=== PATIENT | male | born 1940 | race Caucasian/White ===

== ENCOUNTER → 2018-02-01 | Outpatient (CLI) | payer MEDICARE, BC ==
--- NOTE | 2018-02-01 16:33 | Diagnostic Imaging Report ---
EXAMINATION: Right foot radiographs, three views. COMPARISON: None. HISTORY: 77-year-old male, pain near the base of the fourth and fifth toes. FINDINGS: There is wloicgnl-gn-ezvwvd joint space loss at the first metatarsophalangeal joint. There is a chronic appearing deformity of the distal fibular diaphysis likely relating to sequela of remote prior healed fracture. There is an os peroneum. There is no identified acute fracture. There is no large tibiotalar joint effusion. The lateral radiograph is obliquely positioned. The additional joint spaces appear fairly well preserved. IMPRESSION: 1. Os peroneum. 2. 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 3. Sequelae of remote prior healed distal fibular diaphyseal fracture. Dictated by: Dictated on workstation # [id number]
== END ==
LOC: RAD 15:48
PROVIDERS: ATTEND Nurse Practitioner Family
DX: M19.071 Primary osteoarthritis, right ankle and foot (principal); S82.831S Other fracture of upper and lower end of right fibula, sequela
CPT/HCPCS: 73630

== ENCOUNTER 2019-07-11 08:24 | Outpatient (CLI) | payer MEDICARE, BC ==
[~2019-07-11] VITALS: Ht 165.1 cm; Wt 70.4 kg
[2019-07-11] MEDS ORDERED: FA/M1TAB29 PO (09:12)
[2019-07-11] MEDS ORDERED: DILT120C53 PO (09:12)
[2019-07-11] MEDS ORDERED: UBID100C17 PO (09:12)
[2019-07-11] MEDS ORDERED: CETI10TA20 PO (09:12)
[2019-07-11] MEDS ORDERED: ROSU5TAB PO (09:12)
[2019-07-11] MEDS ORDERED: ALPR0.5T PO (09:12)
[2019-07-11] MEDS ORDERED: TRIM100T PO (09:12)
[2019-07-11] MEDS ORDERED: CLOP75TA28 PO (09:12)
[2019-07-11] MEDS ORDERED: CYAN1TAB16 PO (09:12)
[2019-07-11] MEDS ORDERED: TRIA1CAP4 PO (09:12)
[2019-07-11] MEDS ORDERED: ISOS30TA3 PO (09:12)
[2019-07-11] MEDS ORDERED: ASCO10006 PO (09:12)
[2019-07-11] MEDS ORDERED: ASPI-586 PO (09:12)
[2019-07-11] MEDS ORDERED: MV-M1TAB20 PO (09:12)
== END 2019-07-11 09:13 | disposition home or self-care (01) ==
LOC: PREOP 08:24
PROVIDERS: ATTEND Surgery
DX: Z01.818 Encounter for other preprocedural examination (principal)

== ENCOUNTER 2019-07-13 11:09 | Day surgery (SDC) | payer MEDICARE, BC ==
[2019-07-13] VITALS (15 sets, daily range): BP systolic 104–181; BP diastolic 61–99
[~2019-07-13 11:09] MED LIST: ALPR0.5T PO; ASCO10006 PO; ASPI-586 PO; CETI10TA20 PO; CLOP75TA28 PO; CYAN1TAB16 PO; DILT120C53 PO; FA/M1TAB29 PO; ISOS30TA3 PO; MV-M1TAB20 PO; ROSU5TAB PO; TRIA1CAP4 PO; TRIM100T PO; UBID100C17 PO
[2019-07-13] MEDS ORDERED: NS IV 500 ML 500 ML ONE (11:30)
[2019-07-13] MEDS ORDERED: NS IV 500 ML 500 ML IV PRN (11:56)
[2019-07-13] MEDS ORDERED: LIDOCAINE JELLY 2% 6 ML SYRINGE MM PRN (12:00)
[2019-07-13] MEDS ORDERED: fentaNYL INJECTION 100 MCG/2 ML AMP IVP ONE (12:00)
[2019-07-13] MEDS ORDERED: MIDAZOLAM 2 MG/2 ML (VERSED) VIAL IVP ONE (12:00)
--- NOTE | 2019-07-13 12:16 | Conscious Sedation/ASA ---
Conscious Sedation Pre-Proced Time 12:00 ASA Score 2 For ASA 3 and 4: Consider anesthesia and medical clearance. Also, for patients with a history of failed moderate sedation consider anesthesia. Airway Lungs Heart ASA score ASA 1: a normal healthy patient ASA 2: a patient with a mild systemic disease (mid diabetes, controlled hypertension, obesity ASA 3: a patient with a severe systemic disease that limits activity (angina, COPD, prior Myocardial infarction) ASA 4: a patient with an incapacitating disease that is a constant threat to life (CHF, renal failure) ASA 5: a moribund patient not expected to survive 24 hrs. (ruptured aneurysm) ASA 6: a declared brain- patient whose organs are being harvested. For emergent operations, add the letter E after the classification Mallampati Classification Grade 2 Sedation Plan Analgesia, Amnesia, Plan communicated to team members, Discussed options with patient/fam, Discussed risks with patient/fam The patient is an appropriate candidate to undergo the planned procedure, sedation, and anesthesia. The patient immediately re-assessed prior to indication. YOSEF LILLY MD Jul 13, 2019 12:16
--- NOTE | 2019-07-13 12:16 | Progress Note-Pre Operative ---
Pre-Operative Progress Note H&P Reviewed The H&P was reviewed, patient examined and no changes noted. Date Seen by Provider: Jul 13, 2019 Time Seen by Provider: 12:00 Date H&P Reviewed: Jul 13, 2019 Time H&P Reviewed: 12:00 Pre-Operative Diagnosis: screening YOSEF Fuller MD Jul 13, 2019 12:16
[2019-07-13] MEDS ORDERED: LIDOCAINE JELLY 2% 6 ML SYRINGE ONE (12:17)
[2019-07-13] MEDS ORDERED: MIDAZOLAM 2 MG/2 ML (VERSED) VIAL ONE ×4 (12:17)
[2019-07-13] MEDS ORDERED: fentaNYL INJECTION 100 MCG/2 ML AMP ONE ×2 (12:17)
--- NOTE | 2019-07-13 12:18 | Discharge Inst-Surgical ---
D/C Lap Instructions-MAXX Follow Up Activity as tolerated High Fiber Diet 25g or more per day Avoid Alcohol, Caffeine, Spicy [place] and Acid foods. Drink 64 fluid oz or more of fluids per day. Symptoms to Report: Fever over 101 degree F, Nausea/Vomiting If any problems/questions: Contact your physician or go to Emergency Room YOSEF LILLY MD Jul 13, 2019 12:18
[2019-07-13] MEDS ORDERED: HYDROcodone/APAP 5 MG/325 MG (LORTAB) TAB PO PRN (12:30)
[2019-07-13] MEDS ORDERED: ACETAMINOPHEN 325 MG TABLET PO PRN (12:30)
[2019-07-13] MEDS ORDERED: ONDANSETRON 4 MG/2 ML (SDV) Z0FRAN IVP PRN (12:30)
[2019-07-13] MEDS ORDERED: morphine INJ 10 MG/ML 1ML (SYR OR VIAL) IVP PRN ×2 (12:30)
--- NOTE | 2019-07-13 13:46 | Progress Note-Post Operative ---
Post-Operative Progess Note Surgeon (s)/Arrt Technologist (s) Surgeon YOSEF LILLY MD Arrt Technologist: none Pre-Operative Diagnosis screening colo Post-Operative Diagnosis mild-mod chronic stage 2 ext and int hemorrhoids, mild sigmoid diverticulosis, small polyp asc colon(2mm). Procedure & Operative Findings Date of Procedure 07/13/19 Procedure Performed/Findings colonoscopy with bx. Anesthesia Type cs Estimated Blood Loss Estimated blood loss (mL): minimal Specimens/Packing Specimens Removed ascending colon polyp YOSEF LILLY MD Jul 13, 2019 13:46
--- NOTE | 2019-07-13 18:16 | OPERATIVE REPORT ---
DATE OF SERVICE: 07/13/2019 ATTENDING PRIMARY CARE PHYSICIAN: Dr. Young. PREOPERATIVE DIAGNOSIS: Screening colonoscopy. POSTOPERATIVE DIAGNOSES: Chronic stage II external and internal hemorrhoids, mild sigmoid diverticulosis, small polyp of the ascending colon, 2 mm in size. PROCEDURE: Colonoscopy with biopsy. SURGEON: Yosef Lilly MD ANESTHESIA: Conscious sedation. ESTIMATED BLOOD LOSS: Minimal. FINDINGS: Chronic stage II external and internal hemorrhoids, mild sigmoid diverticulosis, small polyp of the ascending colon, 2 mm in size. DISPOSITION: The patient tolerated the procedure well. INDICATIONS: The patient is a 78-year-old male in need of a screening colonoscopy. His last colonoscopy was 10 years ago and he does report that there was a polyp detected; however, biopsied and found to be benign. He states that he is otherwise doing well, does not report any major issues with diarrhea nor constipation as well as no red blood per rectum nor any dark tarry stools. He also does not report any family history of colon cancer. DESCRIPTION OF PROCEDURE: The patient was brought to the endoscopy suite, laid in the left lateral decubitus position. After adequate IV pain and sedative medications and conscious sedation anesthesia, a digital rectal examination was performed, which revealed chronic stage II external and internal hemorrhoids, not actively edematous nor inflamed and no bleeding. Normal sphincter tone was felt. Prostate gland was palpable and appeared normal. The endoscope was then intubated to the anus and rectum was gently insufflated. The endoscope was then advanced to the valves of Ag in the rectum with no polyps or any neoplasms identified. Through the sigmoid colon, a few isolated small diverticula identified consistent with early diverticulosis. The endoscope was then advanced to the remainder of the descending, transverse, ascending colon and the cecum. These segments were normal. There was a small polyp identified of the ascending colon, 2 mm in size, which was biopsied and destroyed using forceps and electrocautery with visualization of good hemostasis. The cecum appeared normal. The endoscope was then slowly withdrawn while taking a second look and suctioning of residual air with no additional findings. The patient tolerated the procedure well. We will recommend continued medical management with a high fiber diet with 30 grams of fiber per day as well as significant amounts of water to promote soft stools on a daily basis. He does not need another colonoscopy for another 10 years. Job ID: [id number] DocumentID: [id number] Dictated Date: 07/13/2019 13:05:50 Masonry Teacher Date: 07/13/2019 18:15:57 Dictated By: YOSEF LILLY MD
== END 2019-07-13 14:10 | disposition home or self-care (01) ==
LOC: ENDO 11:09
PROVIDERS: ATTEND Surgery
DX: Z12.11 Encounter for screening for malignant neoplasm of colon (principal); D12.2 Benign neoplasm of ascending colon; K64.2 Third degree hemorrhoids; K64.8 Other hemorrhoids; K57.30 Diverticulosis of large intestine without perforation or abscess without bleeding; I25.10 Atherosclerotic heart disease of native coronary artery without angina pectoris; I10 Essential (primary) hypertension; E78.5 Hyperlipidemia, unspecified; E78.00 Pure hypercholesterolemia, unspecified; F41.9 Anxiety disorder, unspecified; Z88.1 Allergy status to other antibiotic agents; Z90.79 Acquired absence of other genital organ(s); Z90.49 Acquired absence of other specified parts of digestive tract; Z79.02 Long term (current) use of antithrombotics/antiplatelets; Z79.82 Long term (current) use of aspirin; Z79.899 Other long term (current) drug therapy; Z87.891 Personal history of nicotine dependence; Z85.3 Personal history of malignant neoplasm of breast; Z82.49 Family history of ischemic heart disease and other diseases of the circulatory system

== ENCOUNTER → 2019-10-08 | Outpatient (CLI) | payer MEDICARE, BC ==
--- NOTE | 2019-10-08 15:02 | Diagnostic Imaging Report ---
PROCEDURE: US carotid duplex, bilateral. TECHNIQUE: Multiple real-time grayscale images were obtained over the carotid arteries in various projections, bilaterally. Additional spectral analysis and color Doppler duplex images were also obtained. INDICATION: Near syncope. FINDINGS: There is plaquing in both carotid bulbs. Velocities are normal bilaterally. No velocity elevation or stenosis is seen. Both vertebral arteries show antegrade flow. IMPRESSION: Bilateral carotid plaque. There is no evidence of a hemodynamically significant stenosis. Parameters based on the consensus panel Schmid-Scale and Doppler ultrasound criteria published August 2003, Radiology, Volume 229. DOPPLER (peak systolic velocity M/S Right Left CCA .97 1.14 ICA Proximal .92 .95 ICA Mid .47 .79 ICA Distal .48 .56 RATIO 0.9 0.8 ECA 1.27 .53 VERT .37 .47 Dictated by: Dictated on workstation # [id number]
== END ==
LOC: CARD 12:54
PROVIDERS: ATTEND Physician Assistant Medical
DX: I35.0 Nonrheumatic aortic (valve) stenosis (principal); I65.23 Occlusion and stenosis of bilateral carotid arteries; I10 Essential (primary) hypertension
CPT/HCPCS: 93306; 93880

== ENCOUNTER → 2020-04-22 | Outpatient (CLI) | payer MEDICARE, BC ==
[~2020-04-22] MED LIST changes: -CETI10TA20 PO; +CETI10TA21 PO
--- NOTE | 2020-04-22 12:00 | Diagnostic Imaging Report ---
PROCEDURE: CT abdomen and pelvis without contrast. TECHNIQUE: Multiple contiguous axial images were obtained through the abdomen and pelvis without the use of intravenous contrast. Auto Exposure Controls were utilized during the CT exam to meet ALARA standards for radiation dose reduction. INDICATION: New diagnosis of prostate cancer. Compared with study 07/29/2009. Cystic renal masses bilaterally greater left. It is once again noted the dominant lesion is exophytic off the upper pole on the left measuring 8.1 cm, previously 6.7 cm, mildly increased. Additional smaller cysts are either stable or slightly increased as well. Lesional evaluation limited by the absence of vascular contrast but no findings suggestive of a solid lesion are apparent. There is no stone or hydronephrosis. The adrenals and spleen are negative. The pancreas unremarkable. Gallbladder surgically absent. The liver and spleen negative. The adrenals are negative. The atherosclerotic aorta is nonaneurysmal. There multiple diverticuli associated with the urinary bladder, unchanged in appearance from the previous exam. The prostatic volume is unremarkable and stable. Obturator chains and pelvic sidewalls showed no lymphadenopathy. He inguinal canals were unremarkable. No periaortic retroperitoneal adenopathy, no mesenteric mass. No suspicious lytic or sclerotic bony lesion. There is lumbar spondylosis and facet arthrosis chronic. No suspicious basilar nodule or infiltrate in the visualized lower lobes. IMPRESSION: Unchanged trabeculated morphology of the urinary bladder with nonfocal and nonacute enlarged prostate with no evidence of adenopathy or findings of metastasis. Impression bilateral renal cortical cyst increased over the last 11 years but no findings to suggest a solid mass were revealed at this nonenhanced study and no obstruction. Dictated by: Dictated on workstation # [id number]
--- NOTE | 2020-04-22 14:20 | Diagnostic Imaging Report ---
INDICATION: Prostate carcinoma. TECHNIQUE: The patient was administered 25.0 mCi of technetium 99m MDP intravenously and whole-body imaging was performed after a 3 hour delay. COMPARISON: No prior bone scans are available for comparison. FINDINGS: There is normal uptake of activity by the axial and appendicular skeleton. There is uptake by both kidneys with excretion into the urinary bladder. No suspicious foci of tracer accumulation is seen to suggest osseous metastatic disease. IMPRESSION: No scintigraphic evidence of osseous metastatic disease. Dictated by: Dictated on workstation # [id number]
== END ==
LOC: CARD 10:16
PROVIDERS: ATTEND Urology
DX: C61 Malignant neoplasm of prostate (principal); N28.1 Cyst of kidney, acquired
CPT/HCPCS: 74176; 78306; A9503

== ENCOUNTER 2020-06-19 05:39 | Outpatient (CLI) | payer MEDICARE, BC ==
[~2020-06-19] VITALS: Ht 165 cm; Wt 68.1 kg
[2020-06-19] MEDS ORDERED: ACET325C7 PO (13:27)
[2020-06-19] MEDS ORDERED: CYAN-41 PO (13:27)
[2020-06-19] MEDS ORDERED: [UNRECOGNIZED DRUG - CODE] PO (13:27)
[2020-06-19] MEDS ORDERED: GUAI600T43 PO (13:27)
[2020-06-19] MEDS ORDERED: ASPI-999 PO (13:27)
[2020-06-19] MEDS ORDERED: DILT180C84 PO (13:27)
== END 2020-06-19 13:39 | disposition home or self-care (01) ==
LOC: PREOP 05:39
PROVIDERS: ATTEND Urology
DX: Z01.818 Encounter for other preprocedural examination (principal)

== ENCOUNTER 2020-06-24 06:47 | Day surgery (SDC) | payer MEDICARE, BC ==
[~2020-06-24] VITALS: Ht 165 cm; Wt 68.1 kg
[2020-06-24] VITALS (8 sets, daily range): BP systolic 154–186; BP diastolic 82–98
[~2020-06-24 06:47] MED LIST changes: +ACET325C7 PO; +ASPI-999 PO; +CYAN-41 PO; +DILT180C84 PO; +GUAI600T43 PO; +[UNRECOGNIZED DRUG - CODE] PO
[2020-06-24] MEDS ORDERED: LACTATED RINGERS 1,000 ML IV PRN (07:11)
[2020-06-24] MEDS ORDERED: cefTRIAXone FOR IV USE 1,000 MG in WATER (STERILE) FOR INJECTION 10 ML IV ONE (07:15)
[2020-06-24] MEDS ORDERED: fentaNYL INJECTION 100 MCG/2 ML AMP ONE (07:30)
[2020-06-24] MEDS ORDERED: LIDOCAINE PF 2% 5 ML (XYLOCAINE) VIAL ONE (07:30)
[2020-06-24] MEDS ORDERED: MIDAZOLAM 2 MG/2 ML (VERSED) VIAL ONE (07:30)
[2020-06-24] MEDS ORDERED: proPOfol 200 MG/20 ML (DIPRIVAN) VIAL IV ONE (07:30)
[2020-06-24] MEDS ORDERED: CATHETER FLUSH 10 ML SYR IV PRN (07:30)
[2020-06-24] MEDS ORDERED: ONDANSETRON 4 MG/2 ML (SDV) Z0FRAN ONE (07:30)
[2020-06-24] MEDS ORDERED: SEVOFLURANE (ULTANE) 15 ML INHAL SOLN ONE (07:30)
--- NOTE | 2020-06-24 08:01 | Progress Note-Pre Operative ---
Pre-Operative Progress Note H&P Reviewed The H&P was reviewed, patient examined and no changes noted. Date Seen by Provider: Jun 24, 2020 Time Seen by Provider: 08:00 Date H&P Reviewed: Jun 24, 2020 Time H&P Reviewed: 08:00 Pre-Operative Diagnosis: CA PROSTATE BRANDIE ONTIVEROS MD Jun 24, 2020 08:01
--- NOTE | 2020-06-24 08:06 | Progress Note-Post Operative ---
Post-Operative Progess Note Surgeon (s)/[employer] Experimental Mechanic (s) Surgeon BRANDIE ONTIVEROS MD [employer] Experimental Mechanic: NONE Pre-Operative Diagnosis CA PROSTATE Post-Operative Diagnosis SAME Procedure & Operative Findings Date of Procedure 06/24/20 Procedure Performed/Findings PLACEMENT OF SPACE OAR Anesthesia Type GENERAL Estimated Blood Loss Estimated blood loss (mL): NONE Specimens/Packing Specimens Removed NONE Packing: NONE BRANDIE ONITVEROS MD Jun 24, 2020 08:06
--- NOTE | 2020-06-24 08:08 | Discharge Inst-Urology ---
Discharge Inst-Urology Reconcile Patient Problems Problems Reviewed?: Yes Final Diagnosis CA PROSTATE Patient Instructions/Follow Up Plan/Assessment/Instructions Please make appointment to been seen in office in 2 weeks. Rest for 48 hours In 48 hours, if no bleedings, may resume ASA and Plavix Keep bowels soft and moving Increase oral fluids for 48 hours and then as needed. Diet as tolerated. If questions or concerns contact your physician Or seek help at emergency department. BRANDIE ONTIVEROS MD Jun 24, 2020 08:08
[2020-06-24] MEDS ORDERED: morphine INJ 10 MG/ML 1ML (SYR OR VIAL) IVP ONE (08:45)
[2020-06-24] MEDS ORDERED: ONDANSETRON 4 MG/2 ML (SDV) Z0FRAN IVP PRN (08:45)
[2020-06-24] MEDS ORDERED: SULF1TAB35 PO (09:39)
--- NOTE | 2020-06-24 10:35 | Anesthesia-General Post-Op ---
General Patient Condition Mental Status/LOC: Same as Preop Cardiovascular: Satisfactory Nausea/Vomiting: Absent Respiratory: Satisfactory Pain: Controlled Complications: Absent Post Op Complications Complications None Follow Up Care/Instructions Patient Instructions None needed. Anesthesia/Patient Condition Patient Condition Patient was seen after the procedure and he was doing well, no complaints, stable vital signs, no apparent adverse anesthesia problems. NICOLLE PAZ DO Jun 24, 2020 10:35
== END 2020-06-24 10:05 | disposition home or self-care (01) ==
LOC: SDC 06:47
PROVIDERS: ATTEND Urology
DX: C61 Malignant neoplasm of prostate (principal); I10 Essential (primary) hypertension; I25.10 Atherosclerotic heart disease of native coronary artery without angina pectoris; K21.9 Gastro-esophageal reflux disease without esophagitis; Z95.5 Presence of coronary angioplasty implant and graft; Z88.1 Allergy status to other antibiotic agents; Z87.891 Personal history of nicotine dependence; Z79.82 Long term (current) use of aspirin; Z79.02 Long term (current) use of antithrombotics/antiplatelets; Z79.899 Other long term (current) drug therapy; Z11.2 Encounter for screening for other bacterial diseases
CPT/HCPCS: 87081

== ENCOUNTER → 2020-08-26 | Outpatient (RCR) | payer MEDICARE, BC ==
[~2020-08-26] MED LIST changes: +ASCO100024 PO; -ASCO10006 PO; -CETI10TA21 PO; +CETI10TA49 PO; +SULF1TAB35 PO
== END | disposition home or self-care (01) ==
LOC: ONC 05-28 12:34
PROVIDERS: ATTEND Radiology Radiation Oncology
DX: Z51.0 Encounter for antineoplastic radiation therapy (principal); C61 Malignant neoplasm of prostate
CPT/HCPCS: 77300; 77301; 77334; 77336; 77338; 77385; 99204

== ENCOUNTER 2020-09-16 08:28 | Outpatient (RCR) | payer MEDICARE, BC | END 2020-11-25 | disposition home or self-care (01) | LOC: ONC 08:28 | PROVIDERS: ATTEND Radiology Radiation Oncology | DX: C61 Malignant neoplasm of prostate (principal) | CPT/HCPCS: 77336; 77385 ×2; G0463 ==

== ENCOUNTER 2022-08-02 17:28 | Inpatient (IN) | payer MEDICARE, BC ==
[~2022-08-02] VITALS: Ht 165.1 cm; Wt 75.7 kg
[~2022-08-02 17:28] MED LIST changes: -ISOS30TA3 PO; +ISOS30TA82 PO; -SULF1TAB35 PO; +SULF1TAB38 PO; -TRIA1CAP4 PO; +TRIA1CAP84 PO
[2022-08-02 17:57] VITALS: BP 112/68
[2022-08-02] MEDS ORDERED: ACETAMINOPHEN 500 MG TAB (TYLENOL) PO PRN ×2 (18:00→21:30)
[2022-08-02] MEDS ORDERED: LACTATED RINGERS 1,000 ML IV ONE ×2 (18:00→20:43)
[2022-08-02 18:03] LABS: BASOPHILS % (AUTO) 0 % (0-10); EOSINOPHILS % (AUTO) 0 % (0-10); HEMATOCRIT 38 % (40-54); HEMOGLOBIN 13.4 g/dL (13.3-17.7); LYMPHOCYTES # (AUTO) 0.3 10^3/uL (1.0-4.0); LYMPHOCYTES % (AUTO) 2 % (12-44); MEAN CORPUSCULAR HEMOGLOBIN 32 pg (25-34); MEAN CORPUSCULAR HGB CONC 35 g/dL (32-36); MEAN CORPUSCULAR VOLUME 91 fL (80-99); MEAN PLATELET VOLUME 9.8 fL (9.0-12.2); MONOCYTES # (AUTO) 0.1 10^3/uL (0.0-1.0); MONOCYTES % (AUTO) 1 % (0-12); NEUTROPHILS % (AUTO) 96 % (42-75); PLATELET COUNT 187 10^3/uL (130-400); WHITE BLOOD COUNT 12.5 10^3/uL (4.3-11.0)
[2022-08-02 18:07] LABS: BILIRUBIN,URINE NEGATIVE (NEGATIVE); CLARITY,URINE CLOUDY; COLOR,URINE YELLOW; GLUCOSE, URINE (UA) NEGATIVE (NEGATIVE); KETONES,URINE NEGATIVE (NEGATIVE); LEUKOCYTE ESTERASE ,URINE 3+ (NEGATIVE); NITRITE,URINE POSITIVE (NEGATIVE); PROTEIN,URINE 1+ (NEGATIVE)
[2022-08-02 18:15] LABS: ALBUMIN 4.1 GM/DL (3.2-4.5); POTASSIUM 3.4 MMOL/L (3.6-5.0); PROTHROMBIN TIME PATIENT 13.8 SEC (12.2-14.7)
[2022-08-02] MEDS ORDERED: CEFEPIME INJECTION 2,000 MG in NS (IVPB) 50 ML IV ONE (18:15)
[2022-08-02] MEDS ORDERED: IBUPROFEN 800 MG (MOTRIN) TAB PO ONE (18:15)
[2022-08-02 18:18] LABS: TOTAL PROTEIN 6.7 GM/DL (6.4-8.2)
[2022-08-02 18:19] LABS: BILIRUBIN,TOTAL 0.6 MG/DL (0.1-1.0)
[2022-08-02 18:21] LABS: CREATININE SERUM 0.89 MG/DL (0.60-1.30)
[2022-08-02 18:23] LABS: BACTERIA,URINE MODERATE /HPF; RBC,URINE >100 /HPF; WBC,URINE TNTC /HPF
--- NOTE | 2022-08-02 18:27 | Diagnostic Imaging Report ---
EXAMINATION: Chest 1 view HISTORY: fever COMPARISON: None available. FINDINGS: Heart size and pulmonary vasculature are normal. The lungs are clear without consolidation, pleural effusion, or pneumothorax. The osseous structures are intact. IMPRESSION: 1. No acute radiographic abnormality in the chest. Dictated by: Dictated on workstation # [id number]
[2022-08-02 19:01] LABS: BAND NEUTROPHILS 10 %; BASOPHILS % (MANUAL) 1 %; LYMPHOCYTES % (MANUAL) 1 %; NEUTROPHILS % (MANUAL) 88 %; TOXIC GRANULATION/VACUOLAZATIO 1+
[2022-08-02 19:02] LABS: RBC MORPH NORMAL
--- NOTE | 2022-08-02 19:22 | ED GU-Male ---
General Chief Complaint: - Reproductive Stated Complaint: UTI SYMPTOMS BLOOD IN URINE Nursing Triage Note: pt states he had a uti 3 weeks ago, was treated with bactrim for 10 days, states he still has uti symptoms and called dr polk to get more bactrim, has taken one dose. took 2 tylenol at 1700 Source: patient (VERY POOR HISTORIAN), other (DAUGHTER GIVES MOST INFORMATION) History of Present Illness Date Seen by Provider: Aug 02, 2022 Time Seen by Provider: 17:53 Initial Comments PT ARRIVES VIA POV FROM HOME PT STATES HE HAD A UTI 3 WEEKS AGO, AND WAS TREATED WITH BACTRIM X 10 DAYS AND SYMPTOMS GOT BETTER BUT NEVER WENT AWAY PT STARTED HAVING WORSENING OF UTI SYMPTOMS FOR THE LAST WEEK, AND IS WORSE TO DAY DID NOT SEEK CARE AT ANY TIME AFTER THE INITIAL MEDICATION WAS PRESCRIBED NOW HE IS HAVING BLOOD IN HIS URINE, INCREASED BURNING WITH URINATION PT HAS NOT CHECKED HIS TEMPERATURE, AND WAS UNAWARE THAT HE HAD FEVER--TEMP IS 38.5=101.4 ON ARRIVAL HERE HE TOOK 2 TYLENOL 650 MG AT 1700 TODAY FOR PAIN HAS BEEN HAVING CHILLS AND BODY ACHES NO NAUSEA/VOMITING/DIARRHEA NO ABDOMINAL PAIN BUT IS HAVING DIFFUSE LOW BACK PAIN HAS HAD DECREASED APPETITE, AND DECREASED FLUID INTAKE THIS WEEK ATE BAGEL, APPLE, PEANUT BUTTER, AND PROTEIN BAR TODAY VERY LITTLE FLUID INTAKE TODAY PT HAS A HISTORY OF PROSTATE CANCER AND HAD A PRIOR TURP YEARS AGO, THEN HAD RADIATION 3-4 YEARS AGO. DAUGHTER ALSO REPORTS THAT HIS 3 WEEKS AGO. PCP:DR. LAWSON UROLOGIST: DR. POLK Allergies and Home Medications Allergies Coded Allergies: levofloxacin (Verified Allergy, Mild, HIVES, 06/19/20) Patient Home Medication List Acetaminophen (Tylenol Extra Strength) 500 Mg Tablet, 500-1,000 MG PO Q8H PRN for PAIN-MILD (1-4), (Reported) Entered as Reported by: KAL NGUYEN on 08/03/22 1231 Last Action: Continued Alprazolam (Alprazolam) 0.5 Mg Tablet, 0.5 MG PO HS, (Reported) Entered as Reported by: KAL NGUYEN on 08/03/22 1231 Last Action: Continued Ascorbic Acid (Vitamin C) 1,000 Mg Tablet, 1,000 MG PO DAILY, (Reported) Entered as Reported by: FREEAMN MOY on 07/11/19911 Last Action: Reviewed Aspirin (Aspirin EC) 81 Mg Tablet.dr, 81 MG PO HS, (Reported) Entered as Reported by: KAL NGUYEN on 08/03/221230 Last Action: Continued Cefdinir (Cefdinir) 300 Mg Capsule, 300 MG PO BID Prescribed by: RAMON ALTMAN on 08/06/22 1139 Cholecalciferol (Vitamin D3) (Vitamin D3) 50 Mcg (2000 Unit) Capsule, 50 MCG PO HS, (Reported) Entered as Reported by: KAL NGUYEN on 08/03/221232 Last Action: Converted Clopidogrel Bisulfate (Clopidogrel) 75 Mg Tablet, 75 MG PO HS, (Reported) Entered as Reported by: KAL NGUYEN on 08/03/221230 Last Action: Continued Cyanocobalamin/FA/Pyridoxine (Folbic Tablet) 1 Each Tablet, 1 EACH PO DAILY, (Reported) Entered as Reported by: FREEMAN MOY on 07/11/19911 Last Action: Reviewed Diltiazem HCl (Diltiazem 24Hr ER) 240 Mg Cap.er.24h, 240 MG PO HS, (Reported) Entered as Reported by: KAL NGUYEN on 08/03/221230 Last Action: Continued Fexofenadine HCl (Fexofenadine HCl) 180 Mg Tablet, 180 MG PO HS, (Reported) Entered as Reported by: KAL NGUYEN on 08/03/221230 Last Action: Converted Nitroglycerin (Nitroglycerin) 0.4 Mg Tab.subl, 0.4 MG PO UD PRN for CHEST PAIN (ANGINA), (Reported) Entered as Reported by: KAL NGUYEN on 08/03/221230 Last Action: Continued Rosuvastatin Calcium (Rosuvastatin Calcium) 5 Mg Tablet, 5 MG PO DAILY, (Reported) Entered as Reported by: KAL NGUYEN on 08/03/221230 Last Action: Continued Triamterene/Hydrochlorothiazid (Triamterene-Hctz 37.5-25 mg Tb) 37.5 Mg-25 Mg Tablet, 0.5 EA PO DAILY, (Reported) Entered as Reported by: KAL NGUYEN on 08/03/221230 Last Action: Held Discontinued Medications Acetaminophen (Tylenol) 325 Mg Capsule, 650 MG PO PRN Discontinued Reason: No Longer Taking Prescribed by: AMY MUNIZ on 08/02/222138 Last Action: Discontinued Cetirizine HCl (Zyrtec) 10 Mg Tablet, 10 MG PO DAILY, (Reported) Discontinued Reason: No Longer Taking Entered as Reported by: FREEMAN MOY on 07/11/19911 Last Action: Discontinued Diltiazem HCl (Diltiazem 24Hr Cd) 180 Mg Cap.er.24h, 240 MG PO DAILY Discontinued Reason: Duplicate Order Prescribed by: AMY MUNIZ on 08/02/222138 Last Action: Discontinued Fexofenadine HCl (Aller-Ease) 60 Mg Tablet, 60 MG PO DAILY, (Reported) Discontinued Reason: Prescription changed Entered as Reported by: YOVANY MANNING on 06/19/201326 Guaifenesin (Mucinex) 600 Mg Tab.er.12h, 600 MG PO DAILY PRN for CONGESTION, (Reported) Discontinued Reason: No Longer Taking Entered as Reported by: YOVANY MANNING on 06/19/201326 Last Action: Discontinued Isosorbide Mononitrate (Isosorbide Mononitrate ER) 30 Mg Tab.er.24h, 15 MG PO DAILY, (Reported) Discontinued Reason: No Longer Taking Entered as Reported by: FREEMAN MOY on 07/11/19911 Last Action: Discontinued Multivit-Min/FA/Lycopene/Lut (Complete Multi 50+ Tablet) 1 Each Tablet, 1 EACH PO DAILY, (Reported) Discontinued Reason: No Longer Taking Entered as Reported by: FREEMAN MOY on 07/11/19911 Last Action: Discontinued Mv-Mn/Iron/FA/Herbal Cmplx#190 (Vitamin D3 Complete Caplet) 1 Each Tablet, 1 EACH PO DAILY, (Reported) Discontinued Reason: No Longer Taking Entered as Reported by: FREEMAN MOY on 07/11/19911 Last Action: Discontinued Rosuvastatin Calcium (Crestor) 5 Mg Tablet, 5 MG PO DAILY, (Reported) Discontinued Reason: Duplicate Order Entered as Reported by: FREEMAN MOY on 07/11/19911 Last Action: Discontinued Sulfamethoxazole/Trimethoprim (Bactrim Ds Tablet) 1 Each Tablet, 1 EACH PO BID Discontinued Reason: Duplicate Order Prescribed by: AMEYA RUBY on 06/24/20 0939 Last Action: Discontinued Sulfamethoxazole/Trimethoprim (Bactrim Ds Tablet) 800 Mg-160 Mg Tablet, 1 EA PO BID, (Reported) Entered as Reported by: KAL NGUYEN on 08/03/22 1231 Last Action: Held Triamterene/Hydrochlorothiazid (Triamterene-Hctz 37.5-25 mg Cp) 37.5 Mg-25 Mg Capsule, 0.5 EACH PO DAILY Discontinued Reason: Duplicate Order Prescribed by: AMY MUNIZ on 08/02/222138 Last Action: Discontinued Trimethoprim (Trimethoprim) 100 Mg Tablet, 100 MG PO DAILY, (Reported) Discontinued Reason: No Longer Taking Entered as Reported by: FREEMAN MOY on 07/11/19911 Last Action: Discontinued Ubidecarenone (Coq-10) 100 Mg Capsule, 100 MG PO DAILY, (Reported) Discontinued Reason: No Longer Taking Entered as Reported by: FREEMAN MOY on 07/11/19911 Last Action: Discontinued Review of Systems Review of Systems Constitutional: see HPI, chills, fever, malaise, weakness EENTM: no symptoms reported Respiratory: no symptoms reported; No cough, No short of breath Cardiovascular: no symptoms reported Gastrointestinal: no symptoms reported; No abdominal pain, No nausea, No vomiti ng Genitourinary: see HPI, burning, dysuria, frequency, flank pain, hematuria, pain, urgency Musculoskeletal: see HPI, back pain Skin: no symptoms reported Past Hraytvv-Ptownr-Jbwhce Hx Patient Social History Tobacco Use?: No Substance use?: No Alcohol Use?: No Pt feels they are or have been: No Immunizations Up To Date PED Vaccines UTD: No Seasonal Allergies Seasonal Allergies: Yes Past Medical History Surgeries: Yes (knee scope, TURP) Appendectomy, Cardiac, Coronary Stent, Gallbladder, Orthopedic, Tonsillectomy, Transurethral Resection Respiratory: No Currently Using CPAP: No Currently Using BIPAP: No Cardiac: Yes (stents x8) Coronary Artery Disease, Hypertension Neurological: No Sexually Transmitted Disease: No HIV/AIDS: No Genitourinary: Yes (PROSTATE CANCER) Prostate Problems Gastrointestinal: No Musculoskeletal: No Endocrine: No HEENT: Yes (cataracts removed, dental implant) Loss of Vision: Denies Hearing Impairment: Hard of Hearing, Bilateral Hearing Aide Cancer: Yes Prostate Did You Recieve Any Treatments: Yes What Type of Treatment Did You: Radiation, Surgical Intervention TURP MANY YEARS AGO RADIATION 3-4 YEARS AGO Psychosocial: Yes Anxiety, Depression Integumentary: No Blood Disorders: No Adverse Reaction/Blood Tranf: No (N/A) Physical Exam Vital Signs Vital Signs - First Documented 08/02/22 17:39 Temp 38.5 Pulse 105 Resp 18 B/P (MAP) 152/62 (92) Pulse Ox 99 O2 Delivery Room Air Capillary Refill : Less Than 3 Seconds Height, Weight, BMI Height: '" Weight: lbs. oz. kg; 25.00 BMI Method: General Appearance: WD/WN, no apparent distress Neck: normal inspection Cardiovascular: regular rate, rhythm Respiratory: normal breath sounds Gastrointestinal: soft, tenderness (MILD SUPRAPUBIC TENDERNESS) Back: CVA tenderness (R), CVA tenderness (L) Extremities: normal inspection, normal capillary refill Neurologic/Psychiatric: no motor/sensory deficits, alert, normal mood/affect, oriented x 3 Skin: normal color, warm/dry; No rash Focused Exam Sepsis Stage: Sepsis Possible Source: Genitouriary Lactate Level 08/02/22 17:40: Lactic Acid Level 1.32 Time of Focused Exam: 19:10 Respiratory: Normal Breath Sounds, No Accessory Muscle Use, No Respiratory Distress Cardiovascular: Regular Rate, Rhythm Capillary Refill: Less Than 3 Seconds Skin: normal color, warm/dry Lactic Acid Level Laboratory Tests Test 08/02/22 17:40 Lactic Acid Level 1.32 MMOL/L (0.50-2.00) Within 3hrs of presentation: Admin fluids, Admin ABX, Blood cultures prior to ABX's, Focus exam, Lactate level Progress/Results/Core Measures Suspected Sepsis SIRS Temperature: Pulse: 105 Respiratory Rate: 18 Blood Pressure 152 /62 Mean: 92 08/02/22 17:40: Lactic Acid Level 1.32 Laboratory Tests 08/02/22 17:40: INR Comment 1.0 Results/Orders Lab Results Laboratory Tests Test 08/02/22 17:39 08/02/22 17:40 08/02/22 18:22 08/02/22 19:13 Range/Units Urine Color YELLOW Urine Clarity CLOUDY Urine pH 6.0 5-9 Urine Specific [place] 1.015 L 1.016-1.022 Urine Protein 1+ H NEGATIVE Urine Glucose (UA) NEGATIVE NEGATIVE Urine Ketones NEGATIVE NEGATIVE Urine Nitrite POSITIVE H NEGATIVE Urine Bilirubin NEGATIVE NEGATIVE Urine Urobilinogen 0.2 < = 1.0 MG/DL Urine Leukocyte Esterase 3+ H NEGATIVE Urine RBC (Auto) 3+ H NEGATIVE Urine RBC >100 H /HPF Urine WBC TNTC H /HPF Urine Crystals NONE /LPF Urine Bacteria MODERATE H /HPF Urine Casts NONE /LPF Urine Mucus NEGATIVE /LPF Urine Culture Indicated CULTURE PENDING White Blood Count 12.5 H 4.3-11.0 10^3/uL Red Blood Count 4.22 L 4.30-5.52 10^6/uL Hemoglobin 13.4 13.3-17.7 g/dL Hematocrit 38 L 40-54 % Mean Corpuscular Volume 91 80-99 fL Mean Corpuscular Hemoglobin 32 25-34 pg Mean Corpuscular Hemoglobin Concent 35 32-36 g/dL Red Cell Distribution Width 12.4 10.0-14.5 % Platelet Count 187 130-400 10^3/uL Mean Platelet Volume 9.8 9.0-12.2 fL Immature Granulocyte % (Auto) 0 % Neutrophils (%) (Auto) 96 H 42-75 % Lymphocytes (%) (Auto) 2 L 12-44 % Monocytes (%) (Auto) 1 0-12 % Eosinophils (%) (Auto) 0 0-10 % Basophils (%) (Auto) 0 0-10 % Neutrophils # (Auto) 12.0 H 1.8-7.8 10^3/uL Lymphocytes # (Auto) 0.3 L 1.0-4.0 10^3/uL Monocytes # (Auto) 0.1 0.0-1.0 10^3/uL Eosinophils # (Auto) 0.0 0.0-0.3 10^3/uL Basophils # (Auto) 0.0 0.0-0.1 10^3/uL Immature Granulocyte # (Auto) 0.1 0.0-0.1 10^3/uL Neutrophils % (Manual) 88 % Lymphocytes % (Manual) 1 % Basophils % (Manual) 1 % Band Neutrophils 10 % Toxic Granulation 1+ Blood Morphology Comment NORMAL Prothrombin Time 13.8 12.2-14.7 SEC INR Comment 1.0 0.8-1.4 Activated Partial Thromboplast Time 29 24-35 SEC Sodium Level 132 L 135-145 MMOL/L Potassium Level 3.4 L 3.6-5.0 MMOL/L Chloride Level 101 98-107 MMOL/L Carbon Dioxide Level 21 21-32 MMOL/L Anion Gap 10 5-14 MMOL/L Blood Urea Nitrogen 24 H 7-18 MG/DL Creatinine 0.89 0.60-1.30 MG/DL Estimat Glomerular Filtration Rate 87 BUN/Creatinine Ratio 27 Glucose Level 103 70-105 MG/DL Lactic Acid Level 1.32 0.50-2.00 MMOL/L Calcium Level 9.0 8.5-10.1 MG/DL Corrected Calcium 8.9 8.5-10.1 MG/DL Total Bilirubin 0.6 0.1-1.0 MG/DL Aspartate Amino Transf (AST/SGOT) 67 H 5-34 U/L Alanine Aminotransferase (ALT/SGPT) 53 0-55 U/L Alkaline Phosphatase 54 40-136 U/L Total Protein 6.7 6.4-8.2 GM/DL Albumin 4.1 3.2-4.5 GM/DL Amylase Level 103 25-125 U/L Procalcitonin 9.67 H <0.10 NG/ML Influenza Type A (RT-PCR) Not Detected Not Detecte Influenza Type B (RT-PCR) Not Detected Not Detecte SARS-CoV-2 RNA (RT-PCR) Not Detected Not Detecte Lab Scanned Report Referred Lab Report [id number] Micro Results Microbiology 08/02/22 Blood Culture - Preliminary, Resulted No growth 08/02/22 Blood Culture, Received Pending 08/02/22 Urine Culture - Final, Complete Escherichia coli My Orders Orders - LEOPOLDO TELLEZ DO Ed Iv/Invasive Line Start (08/02/22 17:56) Ekg Tracing (08/02/22 17:56) O2 (08/02/22 17:56) Monitor-Rhythm Ecg Trace Only (08/02/22 17:56) Amylase (08/02/22 17:56) Procalcitonin (Pct) (08/02/22 17:56) Covid 19 Inhouse Test (08/02/22 17:56) Cbc With Automated Diff (08/02/22 17:56) Comprehensive Metabolic Panel (08/02/22 17:56) Blood Culture (08/02/22 17:56) Urinalysis (08/02/22 17:56) Urine Culture (08/02/22 17:56) Protime With Inr (08/02/22:56) Partial Thromboplastin Time (08/02/22 17:56) Chest 1 View, Ap/Pa Only (08/02/22 17:56) Acetaminophen Tablet (Tylenol Tablet) (08/02/22 18:00) Ed Iv/Invasive Line Start (08/02/22 17:56) Ed Iv/Invasive Line Start (08/02/22 17:56) Vital Signs Adult Sepsis Patie Q15M (08/02/22 17:56) O2 (08/02/22:56) Remove Rings In Anticipation O (08/02/22:56) Lactic Acid Analyzer (08/02/22:56) Influenza A And B By Pcr (08/02/22:56) Isolation Central Supply Req (08/02/22 17:56) Ed Iv/Invasive Line Start (08/02/22 17:56) Lactated Ringers (Lr 1000 Ml Iv Solution (08/02/22 18:00) Ibuprofen Tablet (Motrin Tablet) (08/02/22 18:15) Cefepime Injection (Maxipime Injection) (08/02/22 18:15) Manual Differential (08/02/22 17:40) Medications Given in ED Vital Signs/I&O 08/02/22 08/02/22 08/02/22 17:39 17:57 18:28 Temp 38.5 36.8 38.5 Pulse 105 88 Resp 18 18 B/P (MAP) 152/62 (92) 112/68 (83) Pulse Ox 99 94 O2 Delivery Room Air Room Air Capillary Refill : Less Than 3 Seconds Blood Pressure Mean: 92 Progress Note : Progress Note SEPSIS PROTOCOL INITIATED NO DETERIORATION IN PT'S CONDITION DURING ER STAY ECG Initial ECG Impression Date: Aug 02, 2022 Initial ECG Impression Time: 18:21 Initial ECG Rate: 89 Initial ECG Rhythm: Normal Sinus (LBBB) Initial ECG Impression: Nonspecific Changes Diagnostic Imaging Comments CXR--PER RADIOLOGIST REPORT AT 1911 Reviewed: Reviewed by Me Departure Communication (Admissions) 1912--SPOKE WITH DR. LAWSON, ACCEPTS PT FOR ADMIT. Impression Primary Impression: Sepsis Additional Impressions: UTI (urinary tract infection) Prostate cancer Failure of outpatient treatment Departure-Patient Inst. Referrals: KULWINDER LAWSON MD (PCP/Family) Primary Care Physician Scripts Cefdinir (Cefdinir) 300 Mg Capsule 300 MG PO BID, #12 CAP Prov: RAMON ALTMAN DO 08/06/22 LEOPOLDO TELLEZ DO Aug 02, 2022 19:22
--- NOTE | 2022-08-02 19:53 | Diagnostic Imaging Report ---
PROCEDURE: CT urinary tract, rule out kidney stone. TECHNIQUE: Multiple contiguous axial images were obtained through the abdomen and pelvis without the use of intravenous contrast. Auto Exposure Controls were utilized during the CT exam to meet ALARA standards for radiation dose reduction. INDICATION: Flank pain. Urinary tract infection. COMPARISON: 04/22/2020. FINDINGS: The heart is prominent. Dependent opacities are seen in the lung bases. No evidence of obstructing calculi. There is trace bilateral hydronephrosis with moderate distention of the urinary bladder. Cortical cysts are seen in both kidneys, similar to the prior exam. Multiple bladder diverticula are present. There is generalized bladder wall thickening. Scattered calcified granulomas are seen in the spleen. The liver, pancreas, and adrenal glands have a normal noncontrast CT appearance. The gallbladder is surgically absent. There is no pathologically enlarged mesenteric or retroperitoneal adenopathy. The bowel loops are nondilated. Diverticula are seen in the descending and sigmoid colon without evidence of acute diverticulitis. There is no free fluid or free air. No acute osseous abnormalities. There is no free air, loculated collection, or adenopathy in the pelvis. IMPRESSION: 1. Moderately distended urinary bladder with trace bilateral hydronephrosis. No obstructing calculi. Additionally, there is generalized bladder wall thickening suggestive of cystitis. Dictated by: Dictated on workstation # [id number]
--- NOTE | 2022-08-02 19:57 | Diagnostic Imaging Report ---
PROCEDURE: CT thoracic and lumbar spine without contrast. TECHNIQUE: Multiple contiguous axial images were obtained through the thoracic and lumbar spine without the use of intravenous contrast. Sagittal and coronal reformations were then performed. All CT scans use one or more of the following dose optimizing techniques: automated exposure control, MA and/or KvP adjustment based on a patient size and exam type, or iterative reconstruction. INDICATION: Back pain. COMPARISON: None. FINDINGS: No acute fracture or dislocation is seen in the thoracic and lumbar spine. Vertebral body heights are maintained. No suspicious focal osseous lesions are seen. Prominent Schmorl's node is seen in the inferior endplate of L3. Endplate sclerotic changes are seen at the L5-S1 level. No evidence of acute spinal canal stenosis. No high density material seen within the spinal canal. The paraspinal soft tissues are unremarkable. Included lungs demonstrate small amount of dependent atelectasis. IMPRESSION: 1. No acute fracture or dislocation in the thoracic and lumbar spine. Dictated by: Dictated on workstation # [id number]
[2022-08-02 20:58] VITALS: BP 112/68
[2022-08-02] MEDS ORDERED: IBUPROFEN 800 MG (MOTRIN) TAB PO PRN (21:30)
[2022-08-02] MEDS ORDERED: ONDANSETRON 4 MG/2 ML (SDV) Z0FRAN IV PRN (21:30)
[2022-08-02] MEDS ORDERED: DILT180C84 PO (21:39)
[2022-08-02] MEDS ORDERED: ACET325C7 PO (21:39)
[2022-08-02] MEDS ORDERED: TRIA1CAP84 PO (21:39)
[2022-08-02] MEDS: LACTATED RINGERS 1,000 ML IV SCH (21:41)
[2022-08-02] MEDS ORDERED: guaiFENesin (MUCINEX) 600 MG TAB PO PRN (22:00)
[2022-08-02 23:11] VITALS: BP 118/56
[2022-08-02] MEDS: CEFEPIME 1,000 MG/NS 50 ML IVPB IV SCH ×2 (23:36)
[2022-08-03 04:08] VITALS: BP 146/70
[2022-08-03] MEDS: LACTATED RINGERS 1,000 ML IV SCH ×4 (04:15→18:29)
[2022-08-03] MEDS: CEFEPIME 1,000 MG/NS 50 ML IVPB IV SCH ×2 (05:09)
[2022-08-03] MEDS: MULTIVIT W/MINERALS TAB (THERAGRAN M) PO SCH (05:09)
[2022-08-03] MEDS ORDERED: FLU QUAD HIGH DOSE 240 MCG/0.7 ML 2022-23 (FLUZONE) IM ONE (06:45)
[2022-08-03] MEDS ORDERED: CALCIUM CARBONATE 500 MG (TUMS) TAB.CHEW PO PRN (07:15)
[2022-08-03] MEDS ORDERED: LOPERAMIDE 2 MG (IMODIUM) TABLET PO PRN (07:15)
[2022-08-03] MEDS ORDERED: MELATONIN 3 MG TABLET PO PRN (07:15)
[2022-08-03] MEDS ORDERED: DOCUSATE SODIUM 100 MG (COLACE) CAP PO PRN (07:15)
[2022-08-03] MEDS ORDERED: diphenhydrAMINE 25 MG TAB (BENADRYL) PO PRN (07:15)
[2022-08-03] MEDS ORDERED: HYDROcodone/APAP 5 MG/325 MG (LORTAB) TAB PO PRN (07:15)
[2022-08-03 07:24] LABS: BASOPHILS # (AUTO) 0.1 10^3/uL (0.0-0.1); BASOPHILS % (AUTO) 0 % (0-10); EOSINOPHILS % (AUTO) 0 % (0-10); HEMATOCRIT 35 % (40-54); HEMOGLOBIN 12.1 g/dL (13.3-17.7); LYMPHOCYTES # (AUTO) 0.4 10^3/uL (1.0-4.0); LYMPHOCYTES % (AUTO) 2 % (12-44); MEAN CORPUSCULAR HEMOGLOBIN 32 pg (25-34); MEAN CORPUSCULAR HGB CONC 35 g/dL (32-36); MEAN CORPUSCULAR VOLUME 90 fL (80-99); MEAN PLATELET VOLUME 10.1 fL (9.0-12.2); MONOCYTES % (AUTO) 4 % (0-12); NEUTROPHILS # (AUTO) 20.9 10^3/uL (1.8-7.8); NEUTROPHILS % (AUTO) 92 % (42-75); PLATELET COUNT 159 10^3/uL (130-400); WHITE BLOOD COUNT 22.6 10^3/uL (4.3-11.0)
[2022-08-03 07:34] LABS: ALBUMIN 3.4 GM/DL (3.2-4.5); POTASSIUM 3.6 MMOL/L (3.6-5.0)
[2022-08-03 07:36] LABS: CALCIUM 8.8 MG/DL (8.5-10.1)
[2022-08-03 07:37] LABS: TOTAL PROTEIN 5.6 GM/DL (6.4-8.2)
[2022-08-03 07:39] LABS: BILIRUBIN,TOTAL 0.7 MG/DL (0.1-1.0)
[2022-08-03 07:40] LABS: BAND NEUTROPHILS 16 %; BASOPHILS % (MANUAL) 0 %; EOSINOPHILS % (MANUAL) 0 %; LYMPHOCYTES % (MANUAL) 2 %; MONOCYTES % (MANUAL) 0 %; NEUTROPHILS % (MANUAL) 82 %; RBC MORPH NORMAL
[2022-08-03 07:41] LABS: CREATININE SERUM 0.87 MG/DL (0.60-1.30)
[2022-08-03 07:43] VITALS: BP 116/60
[2022-08-03] MEDS ORDERED: LORATADINE (CLARITIN) 10 MG TAB PO SCH (09:00)
[2022-08-03] MEDS: polyethylene glycoL POWDER 17 GM (MIRALAX) PACK PO SCH ×2 (09:03→21:00)
[2022-08-03] MEDS: ENOXAPARIN 40 MG/0.4 ML (LOVENOX) SYR SC SCH (09:04)
[2022-08-03] MEDS: ASCORBIC ACID (VIT C) 500 MG TABLET PO SCH (09:04)
[2022-08-03] MEDS: ROSUVASTATIN 5 MG (CRESTOR) TABLET PO SCH (09:04)
[2022-08-03] MEDS: SENNA W/DOCUSATE (SENOKOT S) TABLET PO SCH ×2 (09:04→20:49)
[2022-08-03] MEDS: CYANOCOBALAMIN 1,000 MCG (VITAMIN B-12) TABLET PO SCH (09:04)
[2022-08-03] MEDS: MEROPENEM 2,000 MG in NS (IVPB) 100 ML IV SCH ×3 (10:33→20:50)
--- NOTE | 2022-08-03 10:55 | History & Physical ---
SERA AJ 08/03/22 1055: History of Present Illness History of Present Illness Reason for visit/HPI CC: Dysuria, suprapubic and back pain secondary to UTI HPI: 81 YO male with a hx CAD, HTN, and BPH presented to ED last night with continued UTI. He is followed by Dr. Jones who treated him for a UTI x 3 weeks ago with bactrim, however pt had little relief. In ED he was found to have a nitrate positive UTI, elevated procalcitonin and WBC, and was started on Cefepime. CT showed trace bilateral hydronephrosis and cystitis, but no calculi. Pt is feeling better today with less dysuria, suprapubic pain and back pain. Reports he usually caths himself BID as he feels like he can't fully empty his bladder. He has a hx of prostate cancer and BPH requiring TURP procedure. He has a heart monitor in place that is managed by his compressor technician in . He denies fever, chills, n/v/d, cough, or any other complaints at this time. He takes ASA and plavix. Date of Admission Aug 02, 2022 at 19:13 Date Seen by a Provider: Aug 03, 2022 Time Seen by a Provider: 09:00 I consulted on this patient on 08/03/22 10:47 Attending Physician Jayla Young MD Admitting Physician Admitting Physician: Jayla Young MD Attending Physician: Olga Altman DO Consult Allergies and Home Medications Allergies Coded Allergies: levofloxacin (Verified Allergy, Mild, HIVES, 06/19/20) Patient Home Medication List Home Medication List Reviewed: Yes Acetaminophen (Tylenol Extra Strength) 500 Mg Tablet, 500-1,000 MG PO Q8H PRN for PAIN-MILD (1-4), (Reported) Entered as Reported by: KAL NGUYEN on 08/03/22 1231 Last Action: Continued Alprazolam (Alprazolam) 0.5 Mg Tablet, 0.5 MG PO HS, (Reported) Entered as Reported by: KAL NGUYEN on 08/03/22 1231 Last Action: Continued Ascorbic Acid (Vitamin C) 1,000 Mg Tablet, 1,000 MG PO DAILY, (Reported) Entered as Reported by: FREEMAN MOY on 9/18/19 0912 Last Action: Reviewed Aspirin (Aspirin EC) 81 Mg Tablet.dr, 81 MG PO HS, (Reported) Entered as Reported by: KAL NGUYEN on 08/03/221230 Last Action: Continued Cholecalciferol (Vitamin D3) (Vitamin D3) 50 Mcg (2000 Unit) Capsule, 50 MCG PO HS, (Reported) Entered as Reported by: KAL NGUYEN on 08/03/221232 Last Action: Converted Clopidogrel Bisulfate (Clopidogrel) 75 Mg Tablet, 75 MG PO HS, (Reported) Entered as Reported by: KAL NGUYEN on 08/03/221230 Last Action: Continued Cyanocobalamin/FA/Pyridoxine (Folbic Tablet) 1 Each Tablet, 1 EACH PO DAILY, (Reported) Entered as Reported by: FREEMAN MOY on 07/11/19911 Last Action: Reviewed Diltiazem HCl (Diltiazem 24Hr ER) 240 Mg Cap.er.24h, 240 MG PO HS, (Reported) Entered as Reported by: KAL NGUYEN on 08/03/221230 Last Action: Continued Fexofenadine HCl (Fexofenadine HCl) 180 Mg Tablet, 180 MG PO HS, (Reported) Entered as Reported by: KAL NGUYEN on 08/03/221230 Last Action: Converted Nitroglycerin (Nitroglycerin) 0.4 Mg Tab.subl, 0.4 MG PO UD PRN for CHEST PAIN (ANGINA), (Reported) Entered as Reported by: KAL NGUYEN on 08/03/221230 Last Action: Continued Rosuvastatin Calcium (Rosuvastatin Calcium) 5 Mg Tablet, 5 MG PO DAILY, (Reported) Entered as Reported by: KAL NGUYEN on 08/03/221230 Last Action: Continued Sulfamethoxazole/Trimethoprim (Bactrim Ds Tablet) 800 Mg-160 Mg Tablet, 1 EA PO BID, (Reported) Entered as Reported by: KAL NGUYEN on 08/03/221230 Last Action: Held Triamterene/Hydrochlorothiazid (Triamterene-Hctz 37.5-25 mg Tb) 37.5 Mg-25 Mg Tablet, 0.5 EA PO DAILY, (Reported) Entered as Reported by: KAL NGUYEN on 10/11/22 1231 Last Action: Held Discontinued Medications Acetaminophen (Tylenol) 325 Mg Capsule, 650 MG PO PRN Discontinued Reason: No Longer Taking Prescribed by: AMY MUNIZ on 08/02/222138 Last Action: Discontinued Cetirizine HCl (Zyrtec) 10 Mg Tablet, 10 MG PO DAILY, (Reported) Discontinued Reason: No Longer Taking Entered as Reported by: FREEMAN MOY on 07/11/19911 Last Action: Discontinued Diltiazem HCl (Diltiazem 24Hr Cd) 180 Mg Cap.er.24h, 240 MG PO DAILY Discontinued Reason: Duplicate Order Prescribed by: AMY MUNIZ on 08/02/222138 Last Action: Discontinued Fexofenadine HCl (Aller-Ease) 60 Mg Tablet, 60 MG PO DAILY, (Reported) Discontinued Reason: Prescription changed Entered as Reported by: YOVANY MANNING on 06/19/20 1327 Guaifenesin (Mucinex) 600 Mg Tab.er.12h, 600 MG PO DAILY PRN for CONGESTION, (Reported) Discontinued Reason: No Longer Taking Entered as Reported by: YOVANY MANNING on 06/19/20 1327 Last Action: Discontinued Isosorbide Mononitrate (Isosorbide Mononitrate ER) 30 Mg Tab.er.24h, 15 MG PO DAILY, (Reported) Discontinued Reason: No Longer Taking Entered as Reported by: FREEMAN MOY on 07/11/19911 Last Action: Discontinued Multivit-Min/FA/Lycopene/Lut (Complete Multi 50+ Tablet) 1 Each Tablet, 1 EACH PO DAILY, (Reported) Discontinued Reason: No Longer Taking Entered as Reported by: FREEMAN MOY on 07/11/19911 Last Action: Discontinued Mv-Mn/Iron/FA/Herbal Cmplx#190 (Vitamin D3 Complete Caplet) 1 Each Tablet, 1 EACH PO DAILY, (Reported) Discontinued Reason: No Longer Taking Entered as Reported by: FREEMAN MOY on 07/11/19911 Last Action: Discontinued Rosuvastatin Calcium (Crestor) 5 Mg Tablet, 5 MG PO DAILY, (Reported) Discontinued Reason: Duplicate Order Entered as Reported by: FREEMAN MOY on 07/11/19911 Last Action: Discontinued Sulfamethoxazole/Trimethoprim (Bactrim Ds Tablet) 1 Each Tablet, 1 EACH PO BID Discontinued Reason: Duplicate Order Prescribed by: AMEYA RUBY on 06/24/20938 Last Action: Discontinued Triamterene/Hydrochlorothiazid (Triamterene-Hctz 37.5-25 mg Cp) 37.5 Mg-25 Mg Capsule, 0.5 EACH PO DAILY Discontinued Reason: Duplicate Order Prescribed by: AMY MUNIZ on 08/02/222138 Last Action: Discontinued Trimethoprim (Trimethoprim) 100 Mg Tablet, 100 MG PO DAILY, (Reported) Discontinued Reason: No Longer Taking Entered as Reported by: FREEMAN MOY on 07/11/19911 Last Action: Discontinued Ubidecarenone (Coq-10) 100 Mg Capsule, 100 MG PO DAILY, (Reported) Discontinued Reason: No Longer Taking Entered as Reported by: FREEMAN MOY on 07/11/19911 Last Action: Discontinued Past Obcyswo-Xwmxab-Qrvjzh Hx Patient Social History Marrital Status: Tobacco Use?: No Use of E-Cig and/or Vaping dev: No Substance use?: No Alcohol Use?: No Pt feels they are or have been: No Immunizations Up To Date Date of Influenza Vaccine: Jul 30, 2019 PED Vaccines UTD: No Date of Pneumonia Vaccine: Jul 31, 2018 Seasonal Allergies Seasonal Allergies: Yes Current Status Advance Directives: Yes Advance Directive Location: Home Communicates: Verbally Primary Language: Paraguayan Preferred Spoken Language: [place]aguayan Is interpretation needed?: No Sensory deficits: Vision impairment, Hearing impairment Implanted or Applied Medical D: Stents Past Medical History Surgeries: Appendectomy, Coronary Stent, Gallbladder, Tonsillectomy Currently Using CPAP: No Currently Using BIPAP: No Coronary Artery Disease, Hypertension Sexually Transmitted Disease: No HIV/AIDS: No Benign Prostatic Hyperpl, Prostate Problems Loss of Vision: Denies Hearing Impairment: Hard of Hearing, Bilateral Hearing Aide Prostate Anxiety Blood Disorders: No Adverse Reaction/Blood Tranf: No (N/A) Review of Systems Constitutional: No chills, No diaphoresis EENTM: No ear pain, No blurred vision Respiratory: No cough, No dyspnea on exertion Cardiovascular: No chest pain, No palpitations Gastrointestinal: abdominal pain (suprapubic, improved today ); No diarrhea, No nausea, No vomiting Genitourinary: decreased output; No discharge; dysuria; No hematuria; he sitancy; No incontinence Musculoskeletal: back pain Skin: No rash Physical Exam Vital Signs Vital Signs - First Documented 08/02/22 17:39 Temp 38.5 Pulse 105 Resp 18 B/P (MAP) 152/62 (92) Pulse Ox 99 O2 Delivery Room Air Capillary Refill : Less Than 3 Seconds Height, Weight, BMI Height: '" Weight: lbs. oz. kg; 25.96 BMI Method: General Appearance: No Apparent Distress, WD/WN Eyes: Bilateral Eye PERRL, Bilateral Eye EOMI HEENT: Moist Mucous Membranes Neck: Non Tender, Supple Respiratory: Lungs Clear, Normal Breath Sounds, No Accessory Muscle Use, No Respiratory Distress Cardiovascular: Regular Rate, Rhythm, No Gallop, No Murmur, Normal Peripheral Pulses, Other (cement car dumper ) Gastrointestinal: Normal Bowel Sounds, Soft; No Distended, No Guarding; Tenderness (suprapubic ) Back: No Decreased Range of Motion Extremity: Non Tender, No Calf Tenderness, No Pedal Edema Neurologic/Psychiatric: Alert, Oriented x3, Normal Mood/Affect Skin: Normal Color, Warm/Dry Lymphatic: No Adenopathy Assessment/Plan Assessment and Plan Assessment: UTI - grew out E.coli BPH - managed by Dr. 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 He was found to have a complicated UTI meeting criteria for broad spectrum coverage due to suspicion for ESBL. Allergies and Home Medications Allergies Coded Allergies: levofloxacin (Verified Allergy, Mild, HIVES, 06/19/20) Patient Home Medication List Acetaminophen (Tylenol Extra Strength) 500 Mg Tablet, 500-1,000 MG PO Q8H PRN for PAIN-MILD (1-4), (Reported) Entered as Reported by: KAL NGUYEN on 08/03/221230 Last Action: Continued Alprazolam (Alprazolam) 0.5 Mg Tablet, 0.5 MG PO HS, (Reported) Entered as Reported by: KAL NGUYEN on 08/03/221230 Last Action: Continued Ascorbic Acid (Vitamin C) 1,000 Mg Tablet, 1,000 MG PO DAILY, (Reported) Entered as Reported by: FREEMAN MOY on 07/11/19911 Last Action: Reviewed Aspirin (Aspirin EC) 81 Mg Tablet.dr, 81 MG PO HS, (Reported) Entered as Reported by: KAL NGUYEN on 08/03/221230 Last Action: Continued Cholecalciferol (Vitamin D3) (Vitamin D3) 50 Mcg (2000 Unit) Capsule, 50 MCG PO HS, (Reported) Entered as Reported by: KAL NGUYEN on 08/03/221232 Last Action: Converted Clopidogrel Bisulfate (Clopidogrel) 75 Mg Tablet, 75 MG PO HS, (Reported) Entered as Reported by: KAL NGUYEN on 08/03/221230 Last Action: Continued Cyanocobalamin/FA/Pyridoxine (Folbic Tablet) 1 Each Tablet, 1 EACH PO DAILY, (Reported) Entered as Reported by: FREEMAN MOY on 07/11/19911 Last Action: Reviewed Diltiazem HCl (Diltiazem 24Hr ER) 240 Mg Cap.er.24h, 240 MG PO HS, (Reported) Entered as Reported by: KAL NGUYEN on 08/03/221230 Last Action: Continued Fexofenadine HCl (Fexofenadine HCl) 180 Mg Tablet, 180 MG PO HS, (Reported) Entered as Reported by: KAL NGUYEN on 08/03/221230 Last Action: Converted Nitroglycerin (Nitroglycerin) 0.4 Mg Tab.subl, 0.4 MG PO UD PRN for CHEST PAIN (ANGINA), (Reported) Entered as Reported by: KAL NGUYEN on 08/03/221230 Last Action: Continued Rosuvastatin Calcium (Rosuvastatin Calcium) 5 Mg Tablet, 5 MG PO DAILY, (Reported) Entered as Reported by: KAL NGUYEN on 08/03/221230 Last Action: Continued Sulfamethoxazole/Trimethoprim (Bactrim Ds Tablet) 800 Mg-160 Mg Tablet, 1 EA PO BID, (Reported) Entered as Reported by: KAL NGUYEN on 08/03/221230 Last Action: Held Triamterene/Hydrochlorothiazid (Triamterene-Hctz 37.5-25 mg Tb) 37.5 Mg-25 Mg Tablet, 0.5 EA PO DAILY, (Reported) Entered as Reported by: KAL NGUYEN on 08/03/221230 Last Action: Held Discontinued Medications Acetaminophen (Tylenol) 325 Mg Capsule, 650 MG PO PRN Discontinued Reason: No Longer Taking Prescribed by: AMY MUNIZ on 08/02/222138 Last Action: Discontinued Cetirizine HCl (Zyrtec) 10 Mg Tablet, 10 MG PO DAILY, (Reported) Discontinued Reason: No Longer Taking Entered as Reported by: FREEMAN MOY on 07/11/19911 Last Action: Discontinued Diltiazem HCl (Diltiazem 24Hr Cd) 180 Mg Cap.er.24h, 240 MG PO DAILY Discontinued Reason: Duplicate Order Prescribed by: AMY MUNIZ on 08/02/222138 Last Action: Discontinued Fexofenadine HCl (Aller-Ease) 60 Mg Tablet, 60 MG PO DAILY, (Reported) Discontinued Reason: Prescription changed Entered as Reported by: YOVANY MANNING on 06/19/201326 Guaifenesin (Mucinex) 600 Mg Tab.er.12h, 600 MG PO DAILY PRN for CONGESTION, (Re ported) Discontinued Reason: No Longer Taking Entered as Reported by: YOVANY MANNING on 06/19/207 Last Action: Discontinued Isosorbide Mononitrate (Isosorbide Mononitrate ER) 30 Mg Tab.er.24h, 15 MG PO DAILY, (Reported) Discontinued Reason: No Longer Taking Entered as Reported by: FREEMAN MOY on 07/11/19911 Last Action: Discontinued Multivit-Min/FA/Lycopene/Lut (Complete Multi 50+ Tablet) 1 Each Tablet, 1 EACH PO DAILY, (Reported) Discontinued Reason: No Longer Taking Entered as Reported by: FREEMAN MOY on 07/11/19911 Last Action: Discontinued Mv-Mn/Iron/FA/Herbal Cmplx#190 (Vitamin D3 Complete Caplet) 1 Each Tablet, 1 EA CH PO DAILY, (Reported) Discontinued Reason: No Longer Taking Entered as Reported by: FREEMAN MOY on 07/11/19911 Last Action: Discontinued Rosuvastatin Calcium (Crestor) 5 Mg Tablet, 5 MG PO DAILY, (Reported) Discontinued Reason: Duplicate Order Entered as Reported by: FREEMAN MOY on 07/11/19911 Last Action: Discontinued Sulfamethoxazole/Trimethoprim (Bactrim Ds Tablet) 1 Each Tablet, 1 EACH PO BID Discontinued Reason: Duplicate Order Prescribed by: AMEYA RUBY on 06/24/20938 Last Action: Discontinued Triamterene/Hydrochlorothiazid (Triamterene-Hctz 37.5-25 mg Cp) 37.5 Mg-25 Mg Capsule, 0.5 EACH PO DAILY Discontinued Reason: Duplicate Order Prescribed by: AMY MUNIZ on 08/02/222138 Last Action: Discontinued Trimethoprim (Trimethoprim) 100 Mg Tablet, 100 MG PO DAILY, (Reported) Discontinued Reason: No Longer Taking Entered as Reported by: FREEMAN MOY on 07/11/19911 Last Action: Discontinued Ubidecarenone (Coq-10) 100 Mg Capsule, 100 MG PO DAILY, (Reported) Discontinued Reason: No Longer Taking Entered as Reported by: FREEMAN MOY on 07/11/19911 Last Action: Discontinued Past Jkvuosy-Hqsunk-Jtsxyt Hx Patient Social History Marrital Status: Review of Systems Constitutional: see HPI, dizziness, fever, malaise, weakness Genitourinary: decreased output, dysuria, hesitancy Physical Exam General Appearance: No Apparent Distress, WD/WN, Anxious, Other (fatigued) Eyes: Bilateral Eye Normal Inspection, Bilateral Eye PERRL, Bilateral Eye EOMI HEENT: PERRL/EOMI, Normal ENT Inspection, Pharynx Normal Neck: Full Range of Motion, Normal Inspection, Non Tender, Supple, Carotid Bruit Respiratory: Chest Non Tender, Lungs Clear, Normal Breath Sounds, No Accessory Muscle Use, No Respiratory Distress Cardiovascular: Regular Rate, Rhythm, No Edema, No Gallop, No JVD, No Murmur, Normal Peripheral Pulses Gastrointestinal: Normal Bowel Sounds, No Organomegaly, No Pulsatile Mass, Non Tender, Soft Back: Normal Inspection, No CVA Tenderness, No Vertebral Tenderness Extremity: Normal Capillary Refill, Normal Inspection, Normal Range of Motion, Non Tender, No Calf Tenderness, No Pedal Edema Neurologic/Psychiatric: Alert, Oriented x3, No Motor/Sensory Deficits, Normal Mood/Affect Skin: Normal Color, Warm/Dry Lymphatic: No Adenopathy Assessment/Plan Assessment and Plan Sepsis Complicated UTI Suspected ESBL Admission Diagnosis Admission Status: Inpatient Order (span 2 midnights) Reason for Inpatient Admission: complicated UTI Supervisory-Addendum Brief Verification & Attestation Participated in pt care: history, MDM, physical Personally performed: exam, history, MDM, supervision of care Care discussed with: Medical Student Procedures: n/a Results interpretation: Verified all documentation Verification and Attestation of Medical Student E/M Service A medical student performed and documented this service in my presence. I reviewed and verified all information documented by the medical student and made modifications to such information, when appropriate. I personally performed the physical exam and medical decision making. Olga Altman Aug 04, 2022,05:11 SERA JA Aug 03, 2022 10:55 OLGA ALTMAN DO Aug 04, 2022 05:11
[2022-08-03 11:36] VITALS: BP 128/66
[2022-08-03] MEDS ORDERED: SULF-221 PO (12:31)
[2022-08-03] MEDS ORDERED: ACET-2267 PO (12:31)
[2022-08-03] MEDS ORDERED: DILT240C91 PO (12:31)
[2022-08-03] MEDS ORDERED: TRIA1TAB3 PO (12:31)
[2022-08-03] MEDS ORDERED: ALPR0.5T7 PO (12:31)
[2022-08-03] MEDS ORDERED: ASPI-1238 PO (12:31)
[2022-08-03] MEDS ORDERED: ROSU5TAB13 PO (12:31)
[2022-08-03] MEDS ORDERED: CLOP75TA28 PO (12:31)
[2022-08-03] MEDS ORDERED: NITR0.4T42 PO (12:31)
[2022-08-03] MEDS ORDERED: NF-ALLE180 PO (12:31)
[2022-08-03] MEDS ORDERED: CHOL20003 PO (12:33)
[2022-08-03 15:26] VITALS: BP 113/66
[2022-08-03 19:17] VITALS: BP 125/71
[2022-08-03] MEDS: ALPRAZolam 0.5 MG (XANAX) TAB PO SCH (20:49)
[2022-08-03 23:30] VITALS: BP 131/63
[2022-08-04] MEDS: LACTATED RINGERS 1,000 ML IV SCH ×2 (01:54→09:01)
[2022-08-04 03:41] VITALS: BP 129/58
[2022-08-04] MEDS ORDERED: ACETAMINOPHEN 500 MG TAB (TYLENOL) PO PRN (04:45)
[2022-08-04] MEDS ORDERED: NITROGLYCERIN 0.4 MG SL TABS BTL 25'S SL PRN (04:45)
[2022-08-04] MEDS: MEROPENEM 2,000 MG in NS (IVPB) 100 ML IV SCH (05:36)
[2022-08-04] MEDS: ENOXAPARIN 40 MG/0.4 ML (LOVENOX) SYR SC SCH (05:36)
[2022-08-04] MEDS: MULTIVIT W/MINERALS TAB (THERAGRAN M) PO SCH (05:36)
[2022-08-04 06:01] LABS: BASOPHILS % (AUTO) 0 % (0-10); EOSINOPHILS % (AUTO) 0 % (0-10); HEMATOCRIT 34 % (40-54); LYMPHOCYTES # (AUTO) 0.3 10^3/uL (1.0-4.0); LYMPHOCYTES % (AUTO) 2 % (12-44); MEAN CORPUSCULAR HEMOGLOBIN 32 pg (25-34); MEAN CORPUSCULAR HGB CONC 35 g/dL (32-36); MEAN CORPUSCULAR VOLUME 91 fL (80-99); MEAN PLATELET VOLUME 9.9 fL (9.0-12.2); MONOCYTES # (AUTO) 0.6 10^3/uL (0.0-1.0); MONOCYTES % (AUTO) 4 % (0-12); NEUTROPHILS % (AUTO) 93 % (42-75); PLATELET COUNT 135 10^3/uL (130-400); WHITE BLOOD COUNT 16.1 10^3/uL (4.3-11.0)
[2022-08-04 06:22] LABS: ALBUMIN 3.1 GM/DL (3.2-4.5); BILIRUBIN,TOTAL 0.6 MG/DL (0.1-1.0); CALCIUM 8.6 MG/DL (8.5-10.1); CREATININE SERUM 0.78 MG/DL (0.60-1.30); POTASSIUM 3.6 MMOL/L (3.6-5.0); TOTAL PROTEIN 5.5 GM/DL (6.4-8.2)
[2022-08-04 07:47] VITALS: BP 153/66
[2022-08-04] MEDS: CYANOCOBALAMIN 1,000 MCG (VITAMIN B-12) TABLET PO SCH (08:41)
[2022-08-04] MEDS: polyethylene glycoL POWDER 17 GM (MIRALAX) PACK PO SCH ×2 (08:41→20:53)
[2022-08-04] MEDS: ROSUVASTATIN 5 MG (CRESTOR) TABLET PO SCH (08:42)
[2022-08-04] MEDS: ASCORBIC ACID (VIT C) 500 MG TABLET PO SCH (08:42)
[2022-08-04] MEDS: SENNA W/DOCUSATE (SENOKOT S) TABLET PO SCH ×2 (08:42→20:53)
[2022-08-04] MEDS ORDERED: PATIENT MAY USE OWN MED,SINGLE MED PO SCH (08:45)
[2022-08-04] MEDS ORDERED: TRIAMTERENE/HCTZ 75-50 (MAXZIDE,DYAZIDE) TABLET PO SCH (09:00)
[2022-08-04] MEDS ORDERED: ROSUVASTATIN 5 MG (CRESTOR) TABLET PO SCH (09:00)
[2022-08-04] MEDS: TRIAMTERENE PO SCH (09:02)
[2022-08-04] MEDS: HCTZ PO SCH (09:02)
[2022-08-04] MEDS ORDERED: FUROSEMIDE 40 MG/4 ML INJ (LASIX) IVP NR (10:00)
[2022-08-04] MEDS: cefTRIAXone 1 GM PRE-MIX 50 ML IV SCH (10:19)
--- NOTE | 2022-08-04 11:00 | Progress Note ---
SERA AJ 08/04/22 1100: Subjective Date Seen by a Provider: Aug 04, 2022 Time Seen by a Provider: 09:45 Subjective/Events-last exam Pt resting, feeling more weak today. This morning he was febrile at 37.7, but no chills, nausea, vomiting or diarrhea. His abdominal pain has improved and he co ntinues to self cath BID noticing less cloudy urine. He developed a dry cough yesterday, but denies any shortness of breath or chest pain. He is eating, drinking and having bowel movements. Review of Systems General: No Chills; Fatigue, Other (Fever this am. Generalized weakness. ) HEENT: No Head Aches, No Sore Throat Pulmonary: No Dyspnea; Cough (dry ); No Pleuritic Chest Pain Cardiovascular: No: Chest Pain, Palpitations, Edema Gastrointestinal: No: Nausea, Vomiting, Abdominal Pain, Diarrhea, Constipation, Melena Genitourinary: No Dysuria, No Incontinence, No Retention Musculoskeletal: leg pain (left knee, chronic) Neurological: Weakness (generalized ); No: Confusion Focused Exam Lactate Level 08/02/22 17:40: Lactic Acid Level 1.32 Time of Focused Exam: 19:10 Objective Exam Last Set of Vital Signs Vital Signs Date Time Temp Pulse Resp B/P (MAP) Pulse Ox O2 Delivery O2 Flow Rate FiO2 08/04/22 08:00 Room Air 08/04/22 07:47 37.6 81 18 153/66 (95) 92 5.00 Capillary Refill : Less Than 3 Seconds I&O Intake and Output 08/04/22 00:00 Intake Total 2920 ml Output Total 2575 ml Balance 345 ml Intake Oral 1870 ml IV Total 1050 ml Output Urine Total 2575 ml # Voids 3 # Bowel Movements 1 General: Alert, Oriented X3, Cooperative, No Acute Distress HEENT: Atraumatic, PERRLA, EOMI, Mucous Memb Moist/[place] Neck: Supple, No JVD Lungs: Clear to Auscultation Heart: Regular Rate, Normal S1, Normal S2, No Murmurs Abdomen: Normal Bowel Sounds, No Tenderness, No Hepatosplenomegaly, Other (Mildly firm abdomen. Non tender, no rebound or guarding. Normal bowel sounds.) Extremities: No Clubbing, No Cyanosis, No Edema, Normal Pulses, No Tenderness/Swelling Skin: No Rashes, No Breakdown Neuro: Normal Speech, Strength at 5/5 X4 Ext Psych/Mental Status: Mental Status NL Results Lab Laboratory Tests 08/04/22 05:51: White Blood Count 16.1H, Red Blood Count 3.77L, Hemoglobin 12.0L, Hematocrit 34L , Mean Corpuscular Volume 91, Mean Corpuscular Hemoglobin 32, Mean Corpuscular Hemoglobin Concent 35, Red Cell Distribution Width 13.1, Platelet Count 135, Mean Platelet Volume 9.9, Immature Granulocyte % (Auto) 1, Neutrophils (%) (Auto) 93H, Lymphocytes (%) (Auto) 2L, Monocytes (%) (Auto) 4, Eosinophils (%) (Auto) 0, Basophils (%) (Auto) 0, Neutrophils # (Auto) 15.0H, Lymphocytes # (Auto) 0.3L, Monocytes # (Auto) 0.6, Eosinophils # (Auto) 0.0, Basophils # (Auto) 0.0, Immature Granulocyte # (Auto) 0.1, Sodium Level 136, Potassium Level 3.6, Chloride Level 105, Carbon Dioxide Level 20L, Anion Gap 11, Blood Urea Nitrogen 14, Creatinine 0.78, Estimat Glomerular Filtration Rate 91, BUN/Creatinine Ratio 18, Glucose Level 101, Calcium Level 8.6, Corrected Calcium 9.3, Total Bilirubin 0.6, Aspartate Amino Transf (AST/SGOT) 38H, Alanine Aminotransferase (ALT/SGPT) 58H, Alkaline Phosphatase 51, Total Protein 5.5L, Albumin 3.1L Microbiology 08/02/22 Blood Culture - Preliminary, Resulted No growth 08/02/22 Urine Culture - Final, Complete Escherichia coli Assessment/Plan Assessment/Plan Assess & Plan/Chief Complaint Assessment: Sepsis - white count improved from 22.6 yesterday to 16.1 today Complicated UTI - E.coli positive. Susceptible to ceftriaxone, will switch Abx. No longer suspecting ESBL BPH - managed by Dr. Jones Hx of prostate cancer CAD HTN Anticoagulated - ASA and plavix Plan: Change abx from meropenem to ceftriaxone Slow IVF Encourage incentive spirometry PT/OT Clinical Quality Measures Admission Status Admission Dx UTI OLGA YBARRA DO 08/04/22 2011: Subjective Subjective/Events-last exam Improved status No ESBL so narrowed to Rocephin No pain Will initiate therapy Review of Systems General: Fatigue, Malaise Objective Exam General: Alert, Oriented X3, Cooperative, No Acute Distress Lungs: Clear to Auscultation, Normal Air Movement Heart: Regular Rate, Normal S1, Normal S2, No Murmurs Assessment/Plan Assessment/Plan Assess & Plan/Chief Complaint HLIVF Lasix 20mg IVP x 1 Supervisory-Addendum Brief Verification & Attestation Participated in pt care: history, MDM, physical Personally performed: exam, history, MDM, supervision of care Care discussed with: Medical Student Procedures: n/a Results interpretation: Verified all documentation Verification and Attestation of Medical Student E/M Service A medical student performed and documented this service in my presence. I reviewed and verified all information documented by the medical student and made modifications to such information, when appropriate. I personally performed the physical exam and medical decision making. Olga Ybarra, Aug 04, 2022,20:07 SERA AJ Aug 04, 2022 11:00 OLGA YBARRA DO Aug 04, 2022 20:11
--- NOTE | 2022-08-04 11:02 | Physical Therapy Evaluation ---
PT Evaluation-General Medical Diagnosis Admission Date Aug 02, 2022 at 19:13 Medical Diagnosis: UTI, weakness Onset Date: Aug 02, 2022 Therapy Diagnosis Therapy Diagnosis: impaired mobility, strength Precautions Precautions/Isolations: Standard Precautions Referral Physician: Olga Ybarra DO Reason for Referral: Evaluation/Treatment Medical History Additional Medical History Past Medical History Surgeries: Appendectomy, Coronary Stent, Gallbladder, Tonsillectomy Currently Using CPAP: No Currently Using BIPAP: No Coronary Artery Disease, Hypertension Sexually Transmitted Disease: No HIV/AIDS: No Benign Prostatic Hyperpl, Prostate Problems Loss of Vision: Denies Hearing Impairment: Hard of Hearing, Bilateral Hearing Aide Prostate Anxiety Blood Disorders: No Adverse Reaction/Blood Tranf: No (N/A) Reviewed History: Yes Social History Current Living Status: Alone Entry Into Home: Level Entry Up to this point his children have been staying with him, helping out since his . Prior Prior Level of Function SCALE: Activities may be completed with or without assistive devices. 9-Mmbqbbfmai-mlodbku completes the activity by him/herself with no assistance from a helper. 5-Set-up or Clean-up Assistance-helper sets up or cleans up; patient completes activity. [place] assists only prior to or following the activity. 4-Supervision or Touching Assistance-helper provides verbal cues and/or touching/steadying and/or contact guard assistance as patient completes activity. Assistance may be provided throughout the activity or intermittently. 3-Partial/Moderate Assistance-helper does LESS THAN HALF the effort. [place] lifts, holds or supports trunk or limbs, but provides less than half the effort. 2-Substantial/Maximal Assistance-helper does MORE THAN HALF the effort. [place] lifts or holds trunk or limbs and provides more than half the effort. 8-Zidkmgxhw-wislvv does ALL the effort. Patient does none of the effort to complete the activity. Or, the assistance of 2 or more helpers is required for the patient to complete the activity. If activity was not attempted, code reason: 7-Patient Refused. 9-Not Applicable-not attempted and the patient did not perform the activity before the current illness, exacerbation or injury. 10-Not Attempted due to Environmental Limitations-(lack of equipment, weather restraints, etc.). 88-Not Attempted due to Medical Conditions or Safety Concerns. Bed Mobility: 6 Transfers (B,C,W/C): 6 Gait: 6 Indoor Mobility (Ambulation): Independent Prior Devices Use: None PT Evaluation-Current Subjective Patient in restroom pre tx, agrees to PT, has no complaints of pain. Pt/Family Goals to be independent at home Objective Patient Orientation: Person, Place, Situation Attachments: IV ROM/Strength ROM Lower Extremities WNL Strength Lower Extremities LLE (hip flexion 3+/5, knee flexion 4+/5, knee extension 5/5, dorsiflexion 5/5), RLE (hip flexion 3+/5, knee flexion 4+/5, knee extension 5/5, dorsiflexion 5/5) Sensory Vision: Wears Glasses Hearing: Functional Sensation Right Lower Extremit: Intact Sensation Left Lower Extremity: Intact Transfers Sit to Stand (QC): 6 Chair/Qmf-ix-Gxsvn Xfer(QC): 4 Gait Does the Patient Walk?: Yes Mode of Locomotion: Walk Anticipated Mode of Locomotion: Walk Walk 10 feet (QC): 4 Walk 50 ft with 2 Turns(QC): 4 Walk 150 ft (QC): 4 Distance: 150' Gait Assistive Device: FWW Comments/Gait Description Slow but steady ambulation, during ambulation patient states he needs to use the toilet again, ambulated back to his room and on the toilet again. Nurse aide notified, she was going to give him a shower right after PT. Balance Sitting Static: Normal Sitting Dynamic: Normal Standing Static: Good Standing Dynamic: Good Assessment/Needs Steady ambulation using a rolling walker. Rehab Potential: Fair PT Insurance Coder Goals Insurance Coder Goals PT Shelter Goals Time Frame: Aug 11, 2022 Roll Left & Right (QC): 6 Sit to Lying (QC): 6 Lying-Sitting on Side/Bed(QC): 6 Sit to Stand (QC): 6 Chair/Chl-fc-Wevtq Xfer(QC): 6 Walk 10 feet (QC): 6 Walk 50ft with 2 Turns (QC): 6 Walk 150 ft (QC): 6 PT Plan Problem List Problem List: Activity Tolerance, Functional Strength, Safety, Balance, Gait, Transfer, Bed Mobility, ROM Treatment/Plan Treatment Plan: Continue Plan of Care Treatment Plan: Bed Mobility, Education, Functional Activity Juve, Functional Strength, Gait, Safety, Therapeutic Exercise, Transfers Treatment Duration: Aug 11, 2022 Frequency: 6 times per week Estimated Hrs Per Day: .25 hour per day Patient and/or Family Agrees t: Yes Safety Risks/Education Patient Education: Gait Training, Transfer Techniques, Correct Positioning, Safety Issues Teaching Recipient: Patient Teaching Methods: Demonstration, Discussion Response to Teaching: Reinforcement Needed Discharge Recommendations Plan Patient will perform bed mobility and transfer training, balance and endurance training, functional strengthening, stair training, gait training, and education, to improve functional mobility and independence at home. Therapy Discharge Recommendati: Scheduled Assistance, Home & Family, Post Acute PT Time/GCodes Time In: 1032 Time Out: 1042 Total Billed Treatment Time: 10 Total Billed Treatment 1 visit PATTI BLOOM PT Aug 04, 2022 11:02
[2022-08-04 11:15] VITALS: BP 145/62
[2022-08-04] MEDS ORDERED: MEROPENEM 500 MG/NS 100 ML IVPB IV SCH ×2 (12:00)
--- NOTE | 2022-08-04 12:02 | Occupational Therapy Eval ---
OT Evaluation-General/PLF Medical Diagnosis Admission Date Aug 02, 2022 at 19:13 Medical Diagnosis: UTI, weakness Onset Date: Aug 02, 2022 Therapy Diagnosis Therapy Diagnosis: n/a Precautions Precautions/Isolations: Standard Precautions Referral Physician: Olga Ybarra DO Referral Reason: Evaluation/Treatment Medical History Additional Medical History CAD, HTN, BPH, anxiety, prostate Cancer Current History ED with continued UTI Social History Current Living Status: Alone Entry Into Home: Level Entry ADL-Prior Level of Function SCALE: Activities may be completed with or without assistive devices. 6-Dzomsubyuo-jpwxcza completes the activity by him/herself with no assistance from a helper. 5-Set-up or Clean-up Assistance-helper sets up or cleans up; patient completes activity. [place] assists only prior to or following the activity. 4-Supervision or Touching Assistance-helper provides verbal cues and/or touc portillo/steadying and/or contact guard assistance as patient completes activity. Assistance may be provided throughout the activity or intermittently. 3-Partial/Moderate Assistance-helper does LESS THAN HALF the effort. [place] lifts, holds or supports trunk or limbs, but provides less than half the effort. 2-Substantial/Maximal Assistance-helper does MORE THAN HALF the effort. [place] lifts or holds trunk or limbs and provides more than half the effort. 3-Ljedxgnio-kxokld does ALL the effort. Patient does none of the effort to complete the activity. Or, the assistance of 2 or more helpers is required for the patient to complete the activity. If activity was not attempted, code reason: 7-Patient Refused. 9-Not Applicable-not attempted and the patient did not perform the activity before the current illness, exacerbation or injury. 10-Not Attempted due to Environmental Limitations-(lack of equipment, weather restraints, etc.). 88-Not Attempted due to Medical Conditions or Safety Concerns. ADL PLOF Comments Pt reports IND with ADLs and functional mobility without AD. Self Care: Independent Functional Cognition: Independent OT Current Status Subjective Pt in bed, agreeable to OT recliner. Mental Status/Objective Patient Orientation: Person, Place, Time, Situation Current Upper Extremity ROM WFL Upper Extremity Strength WFL ADL-Treatment Eating (QC): 6 Shower/Bathe Self (QC): 6 (per pt and nursing report) On/Off Footwear (QC): 3 (Min A with R sock, pt has difficulty at baseline but has AE at home.) Toileting Hygiene (QC): 6 (per pt and nursing report) Other Treatments Pt in bed, agreeable to OT tx. Pt provided information about PLOF and home set up. Pt reports he just shower and completed toileting without difficulty. Pt demo'd ability to complete footwear, min A with right gripper sock, but pt states he has AE at home and doesn't have concerns with completing upon discharge. Pt transferred supine to EOB, independently, then to recliner independently. Pt began eating lunch, independent. Pt reports no concerns with his ability to complete self care tasks at this time. Post tx, pt in recliner, call light in reach and all needs met. Education OT Patient Education: Correct positioning, Modified ADL techniques, Progress toward Goal/Update tx plan, Purpose of tx/functional activities, Rehab process Teaching Recipient: Patient Teaching Methods: Discussion Response to Teaching: Verbalize Understanding OT Escalator Mechanic Goals Escalator Mechanic Goals 1=Demonstrate adherence to instructed precautions during ADL tasks. 2=Patient will verbalize/demonstrate understanding of assistive devices/modifications for ADL. 3=Patient will improve strength/tolerance for activity to enable patient to perform ADL's. OT Education/Plan Problem List/Assessment Assessment: No Skilled OT Needs ID'd No skilled OT services indicated at this time, as pt is at his PLOF with all ADLs except footwear. Pt has AE at home with footwear and doesn't have any concerns with his ability to complete upon discharging. D/C from OT at this time Discharge Recommendations Plan/Recommendations: Discharge/Goals Met Treatment Plan/Plan of Care Patient would benefit from OT for education, treatment and training to promote independence in ADL's, mobility, safety and/or upper extremity function for ADL 's. Plan of Care: ADL Retraining, Functional Mobility Treatment Duration: Aug 04, 2022 Frequency: 1 time per week (eval only) Rehab Potential: Fair Time/GCodes Start Time: 11:45 Stop Time: 11:53 Total Time Billed (hr/min): 8 Billed Treatment Time 1, SEAN HALL OT Aug 04, 2022 12:02
[2022-08-04 15:59] VITALS: BP 174/85
[2022-08-04 19:26] VITALS: BP 178/84
[2022-08-04] MEDS ORDERED: cloNIDine 0.1 MG (CATAPRES) TAB PO PRN (20:15)
[2022-08-04] MEDS ORDERED: hydrALAZINE (APRESOLINE) 25 MG TAB PO PRN (20:15)
[2022-08-04] MEDS ORDERED: hydrALAZINE (APRESOLINE) 25 MG TAB PO ONE (20:15)
[2022-08-04] MEDS: CLOPIDOGREL 75 MG (PLAVIX) TABLET PO SCH (20:51)
[2022-08-04] MEDS: ASPIRIN E.C. 81 MG (ECOTRIN) TAB PO SCH (20:52)
[2022-08-04] MEDS: LORATADINE (CLARITIN) 10 MG TAB PO SCH (20:52)
[2022-08-04] MEDS: ALPRAZolam 0.5 MG (XANAX) TAB PO SCH (20:52)
[2022-08-04] MEDS: VITAMIN D3 25 MCG (1,000 UNITS) TABLET PO SCH (20:52)
[2022-08-04] MEDS ORDERED: ALPRAZolam 0.5 MG (XANAX) TAB PO SCH (21:00)
[2022-08-04 23:37] VITALS: BP 155/80
[2022-08-05 03:43] VITALS: BP 150/75
[2022-08-05 07:01] LABS: BASOPHILS % (AUTO) 0 % (0-10); EOSINOPHILS # (AUTO) 0.1 10^3/uL (0.0-0.3); EOSINOPHILS % (AUTO) 0 % (0-10); HEMATOCRIT 35 % (40-54); HEMOGLOBIN 12.1 g/dL (13.3-17.7); LYMPHOCYTES # (AUTO) 0.6 10^3/uL (1.0-4.0); LYMPHOCYTES % (AUTO) 5 % (12-44); MEAN CORPUSCULAR HEMOGLOBIN 31 pg (25-34); MEAN CORPUSCULAR HGB CONC 35 g/dL (32-36); MEAN CORPUSCULAR VOLUME 90 fL (80-99); MEAN PLATELET VOLUME 10.2 fL (9.0-12.2); MONOCYTES % (AUTO) 8 % (0-12); NEUTROPHILS # (AUTO) 10.5 10^3/uL (1.8-7.8); NEUTROPHILS % (AUTO) 85 % (42-75); PLATELET COUNT 154 10^3/uL (130-400); WHITE BLOOD COUNT 12.3 10^3/uL (4.3-11.0)
[2022-08-05 07:29] LABS: ALBUMIN 3.2 GM/DL (3.2-4.5); BILIRUBIN,TOTAL 0.6 MG/DL (0.1-1.0); CALCIUM 8.9 MG/DL (8.5-10.1); CREATININE SERUM 0.76 MG/DL (0.60-1.30); POTASSIUM 3.5 MMOL/L (3.6-5.0); TOTAL PROTEIN 5.9 GM/DL (6.4-8.2)
[2022-08-05] MEDS: MULTIVIT W/MINERALS TAB (THERAGRAN M) PO SCH (07:30)
[2022-08-05] MEDS: ENOXAPARIN 40 MG/0.4 ML (LOVENOX) SYR SC SCH (07:30)
[2022-08-05 07:44] VITALS: BP 164/79
[2022-08-05] MEDS: polyethylene glycoL POWDER 17 GM (MIRALAX) PACK PO SCH ×2 (08:46→21:59)
[2022-08-05] MEDS: ROSUVASTATIN 5 MG (CRESTOR) TABLET PO SCH (08:46)
[2022-08-05] MEDS: SENNA W/DOCUSATE (SENOKOT S) TABLET PO SCH ×2 (08:47→22:01)
[2022-08-05] MEDS: ASCORBIC ACID (VIT C) 500 MG TABLET PO SCH (08:47)
[2022-08-05] MEDS: CYANOCOBALAMIN 1,000 MCG (VITAMIN B-12) TABLET PO SCH (08:47)
[2022-08-05] MEDS: TRIAMTERENE PO SCH (08:48)
[2022-08-05] MEDS: HCTZ PO SCH (08:48)
[2022-08-05] MEDS: cefTRIAXone 1 GM PRE-MIX 50 ML IV SCH (10:13)
--- NOTE | 2022-08-05 10:16 | Physical Therapy Daily Note ---
PT Daily Note-Current Subjective Patient reports he is feeling much better today. Family present. Pain Section J - Health Conditions 1. Rarely or not at all 2. Occasionally 3. Frequently 4. Almost constantly 8. Unable to answer Pain Effect on Sleep: 1 Pain Interference with Therapy: 1 Pain Interference w/Day-to-Day: 1 Mental Status Patient Orientation: Normal For Age Transfers SCALE: Activities may be completed with or without assistive devices. 6-Hjpjexseib-awfrzip completes the activity by him/herself with no assistance from a helper. 5-Set-up or Clean-up Assistance-helper sets up or cleans up; patient completes activity. [place] assists only prior to or following the activity. 4-Supervision or Touching Assistance-helper provides verbal cues and/or touching/steadying and/or contact guard assistance as patient completes activity. Assistance may be provided throughout the activity or intermittently. 3-Partial/Moderate Assistance-helper does LESS THAN HALF the effort. [place] lifts, holds or supports trunk or limbs, but provides less than half the effort. 2-Substantial/Maximal Assistance-helper does MORE THAN HALF the effort. [place] lifts or holds trunk or limbs and provides more than half the effort. 2-Vjwtlntoo-kqfibv does ALL the effort. Patient does none of the effort to complete the activity. Or, the assistance of 2 or more helpers is required for the patient to complete the activity. If activity was not attempted, code reason: 7-Patient Refused. 9-Not Applicable-not attempted and the patient did not perform the activity before the current illness, exacerbation or injury. 10-Not Attempted due to Environmental Limitations-(lack of equipment, weather restraints, etc.). 88-Not Attempted due to Medical Conditions or Safety Concerns. Lying to Sitting/Side of Bed(Q: 6 Sit to Stand (QC): 6 Chair/Qbl-az-Argqu Xfer(QC): 6 Gait Training Distance: 500' Walk 10 feet (QC): 6 Walk 50 ft with 2 Turns(QC): 6 Walk 150 ft (QC): 6 Gait Assistive Device: None safe and functional with no deviation Balance Picking up an Object (QC): 6 Assessment Patient is currently at independent PLOF with all gross motor skills and does not require skilled PT intervention. Patient and family instructed to ambulate PRN in hallway. RN notified. PT Sharepoint Web Developer Goals Sharepoint Web Developer Goals PT Group Home Goals Time Frame: Aug 11, 2022 Roll Left & Right (QC): 6 Sit to Lying (QC): 6 Lying-Sitting on Side/Bed(QC): 6 Sit to Stand (QC): 6 Chair/Bgk-eg-Kgecu Xfer(QC): 6 Walk 10 feet (QC): 6 Walk 50ft with 2 Turns (QC): 6 Walk 150 ft (QC): 6 PT Plan Treatment/Plan Treatment Plan: Discontinue PT, goals met Treatment Plan: Bed Mobility, Education, Functional Activity Juve, Functional Strength, Gait, Safety, Therapeutic Exercise, Transfers Treatment Duration: Aug 11, 2022 Frequency: 6 times per week Estimated Hrs Per Day: .25 hour per day Patient and/or Family Agrees t: Yes Time/GCodes Time In: 900 Time Out: 910 Total Billed Treatment Time: 10 Total Billed Treatment 1 visit FA 10 min MELI CAPUTO PT Aug 05, 2022 10:16
[2022-08-05] MEDS ORDERED: FUROSEMIDE 40 MG/4 ML INJ (LASIX) IVP NR (11:00)
[2022-08-05] MEDS ORDERED: KCL 20 MEQ TAB (K-DUR) PO NR (11:00)
[2022-08-05 11:43] VITALS: BP 158/78
--- NOTE | 2022-08-05 13:02 | Progress Note ---
SERA AJ 08/05/22 1302: Subjective Date Seen by a Provider: Aug 05, 2022 Time Seen by a Provider: 10:30 Subjective/Events-last exam Pt states he is doing much better today. He feels less fatigued, has decreased abdominal discomfort, and cough improved. He was slightly SOB after PT yesterday and was placed on 2L. However, he did not use oxygen during the night or morning. He had a small bowel movement last night and this morning, and is eating and drinking well. He continues to straight cath without difficulty. Denies fever, chills, N/V/D, chest pain, or any other sx. Review of Systems General: No Chills, No Night Sweats, No Appetite HEENT: No Visual Changes, No Eye Pain Pulmonary: Dyspnea (after ambulation), Cough (improved since yesterday ) Cardiovascular: No: Chest Pain, Palpitations, Orthopnea Gastrointestinal: No: Nausea, Vomiting, Abdominal Pain, Diarrhea, Constipation, Melena, Hematochezia Genitourinary: No Dysuria, No Hematuria, No Retention Musculoskeletal: No: neck pain, back pain Neurological: No: Weakness Focused Exam Lactate Level 08/02/22 17:40: Lactic Acid Level 1.32 Time of Focused Exam: 19:10 Objective Exam Last Set of Vital Signs Vital Signs Date Time Temp Pulse Resp B/P (MAP) Pulse Ox O2 Delivery O2 Flow Rate FiO2 08/05/22 11:43 36.6 75 18 158/78 (104) 94 Nasal Cannula 2.00 Capillary Refill : Less Than 3 Seconds I&O Intake and Output 08/05/22 00:00 Intake Total 1380 ml Output Total 1500 ml Balance -120 ml Intake Oral 1380 ml Output Urine Total 1500 ml # Voids 3 # Bowel Movements 1 General: Alert, Oriented X3, Cooperative, No Acute Distress HEENT: Atraumatic, PERRLA, EOMI Neck: Supple, No JVD Lungs: Clear to Auscultation Heart: Regular Rate, Normal S1, Normal S2, No Murmurs Abdomen: Normal Bowel Sounds, Soft, No Tenderness Extremities: No Edema, Normal Pulses, No Tenderness/Swelling Skin: No Rashes, No Breakdown Neuro: Normal Gait, Normal Speech, Strength at 5/5 X4 Ext Psych/Mental Status: Mental Status NL Results Lab Laboratory Tests 08/05/22 06:36: White Blood Count 12.3H, Red Blood Count 3.86L, Hemoglobin 12.1L, Hematocrit 35L , Mean Corpuscular Volume 90, Mean Corpuscular Hemoglobin 31, Mean Corpuscular Hemoglobin Concent 35, Red Cell Distribution Width 12.6, Platelet Count 154, Mean Platelet Volume 10.2, Immature Granulocyte % (Auto) 1, Neutrophils (%) (Auto) 85H, Lymphocytes (%) (Auto) 5L, Monocytes (%) (Auto) 8, Eosinophils (%) (Auto) 0, Basophils (%) (Auto) 0, Neutrophils # (Auto) 10.5H, Lymphocytes # (Auto) 0.6L, Monocytes # (Auto) 1.0, Eosinophils # (Auto) 0.1, Basophils # (Auto) 0.0, Immature Granulocyte # (Auto) 0.2H, Sodium Level 136, Potassium Level 3.5L, Chloride Level 103, Carbon Dioxide Level 22, Anion Gap 11, Blood Urea Nitrogen 11, Creatinine 0.76, Estimat Glomerular Filtration Rate 91, BUN/Creatinine Ratio 14, Glucose Level 101, Calcium Level 8.9, Corrected Calcium 9.5, Total Bilirubin 0.6, Aspartate Amino Transf (AST/SGOT) 28, Alanine Aminotransferase (ALT/SGPT) 46, Alkaline Phosphatase 67, Total Protein 5.9L, Albumin 3.2 Microbiology 08/02/22 Blood Culture - Preliminary, Resulted No growth 08/02/22 Urine Culture - Final, Complete Escherichia coli Assessment/Plan Assessment/Plan Assess & Plan/Chief Complaint Assessment: Sepsis - white count continues to trend down Complicated UTI - E.coli positive. Susceptible to ceftriaxone BPH - managed by Dr. Jones Hx of prostate cancer CAD HTN Anticoagulated - ASA and plavix Plan: Continue IV ceftriaxone HLIVF Encourage incentive spirometry Continue PT/OT Clinical Quality Measures Admission Status Admission Dx UTI OLGA YBARRA DO 08/06/22 0543: Assessment/Plan Assessment/Plan Assess & Plan/Chief Complaint PT OT Lasix 20mg IVP HLIVF Supervisory-Addendum Brief Verification & Attestation Participated in pt care: history, MDM, physical Personally performed: exam, history, MDM, supervision of care Care discussed with: Medical Student Procedures: n/a Results interpretation: Verified all documentation Verification and Attestation of Medical Student E/M Service A medical student performed and documented this service in my presence. I reviewed and verified all information documented by the medical student and made modifications to such information, when appropriate. I personally performed the physical exam and medical decision making. Olga Ybarra, Aug 06, 2022,05:42 SERA AJ Aug 05, 2022 13:02 OLGA YBARRA DO Aug 06, 2022 05:43
[2022-08-05 15:39] VITALS: BP 159/78
[2022-08-05 19:17] VITALS: BP 160/77
[2022-08-05] MEDS: LORATADINE (CLARITIN) 10 MG TAB PO SCH (22:00)
[2022-08-05] MEDS: ALPRAZolam 0.5 MG (XANAX) TAB PO SCH (22:00)
[2022-08-05] MEDS: ASPIRIN E.C. 81 MG (ECOTRIN) TAB PO SCH (22:01)
[2022-08-05] MEDS: CLOPIDOGREL 75 MG (PLAVIX) TABLET PO SCH (22:01)
[2022-08-05] MEDS: VITAMIN D3 25 MCG (1,000 UNITS) TABLET PO SCH (22:01)
[2022-08-06 04:00] VITALS: BP 125/65
[2022-08-06] MEDS: ENOXAPARIN 40 MG/0.4 ML (LOVENOX) SYR SC SCH (05:45)
[2022-08-06] MEDS: MULTIVIT W/MINERALS TAB (THERAGRAN M) PO SCH (05:46)
[2022-08-06 06:00] LABS: BASOPHILS # (AUTO) 0.1 10^3/uL (0.0-0.1); BASOPHILS % (AUTO) 1 % (0-10); EOSINOPHILS # (AUTO) 0.3 10^3/uL (0.0-0.3); EOSINOPHILS % (AUTO) 3 % (0-10); HEMATOCRIT 36 % (40-54); HEMOGLOBIN 12.4 g/dL (13.3-17.7); LYMPHOCYTES % (AUTO) 10 % (12-44); MEAN CORPUSCULAR HEMOGLOBIN 31 pg (25-34); MEAN CORPUSCULAR HGB CONC 34 g/dL (32-36); MEAN CORPUSCULAR VOLUME 91 fL (80-99); MEAN PLATELET VOLUME 10.1 fL (9.0-12.2); MONOCYTES # (AUTO) 0.9 10^3/uL (0.0-1.0); MONOCYTES % (AUTO) 9 % (0-12); NEUTROPHILS # (AUTO) 6.9 10^3/uL (1.8-7.8); NEUTROPHILS % (AUTO) 72 % (42-75); PLATELET COUNT 166 10^3/uL (130-400); WHITE BLOOD COUNT 9.6 10^3/uL (4.3-11.0)
[2022-08-06 06:11] LABS: ALBUMIN 3.4 GM/DL (3.2-4.5); POTASSIUM 3.7 MMOL/L (3.6-5.0)
[2022-08-06 06:12] LABS: CALCIUM 8.9 MG/DL (8.5-10.1)
[2022-08-06 06:13] LABS: TOTAL PROTEIN 6.3 GM/DL (6.4-8.2)
[2022-08-06 06:15] LABS: BILIRUBIN,TOTAL 0.5 MG/DL (0.1-1.0)
[2022-08-06 06:17] LABS: CREATININE SERUM 0.82 MG/DL (0.60-1.30)
[2022-08-06 07:41] VITALS: BP 143/73
[2022-08-06] MEDS: cefTRIAXone 1 GM PRE-MIX 50 ML IV SCH (08:45)
[2022-08-06] MEDS: CYANOCOBALAMIN 1,000 MCG (VITAMIN B-12) TABLET PO SCH (08:46)
[2022-08-06] MEDS: ROSUVASTATIN 5 MG (CRESTOR) TABLET PO SCH (08:46)
[2022-08-06] MEDS: ASCORBIC ACID (VIT C) 500 MG TABLET PO SCH (08:46)
[2022-08-06] MEDS: HCTZ PO SCH (08:47)
[2022-08-06] MEDS: TRIAMTERENE PO SCH (08:47)
[2022-08-06] MEDS: polyethylene glycoL POWDER 17 GM (MIRALAX) PACK PO SCH (08:49)
[2022-08-06] MEDS: SENNA W/DOCUSATE (SENOKOT S) TABLET PO SCH (10:33)
[2022-08-06 11:33] VITALS: BP 135/69
[2022-08-06] MEDS ORDERED: CEFD300C3 PO (11:39)
--- NOTE | 2022-08-06 11:41 | Discharge Summary ---
Diagnosis/Chief Complaint Date of Admission Aug 02, 2022 at 19:13 Date of Discharge Discharge Date: Aug 06, 2022 Discharge Diagnosis Assessment: Sepsis - white count continues to trend down Complicated UTI - E.coli positive. Susceptible to ceftriaxone BPH - managed by Dr. Jones Hx of prostate cancer CAD HTN Anti-platelets - ASA and plavix Reason Hospital Visit CC: Complicated UTI with sepsis HPI: This is a 81yoWM clinic patient of Dr Young who has a h/o prostate cancer and BPH managed by Dr Jones who performs his own caths daily at home due to neurogenic bladder who continued to have fevers and dysuria even maintained on abx treatment at home of Bactrim. He was found to have a complicated UTI meeting criteria for broad spectrum coverage due to suspicion for ESBL. Discharge Summary Discharge Physical Examination Allergies: Coded Allergies: levofloxacin (Verified Allergy, Mild, HIVES, 06/19/20) Vitals & I&Os Vital Signs Date Time Temp Pulse Resp B/P (MAP) Pulse Ox O2 Delivery O2 Flow Rate FiO2 08/06/22 12:30 36.6 65 18 135/69 95 Nasal Cannula 2.00 General Appearance: Alert, Oriented X3, Cooperative Respiratory: Clear to Auscultation Cardiovascular: Regular Rate Neuro: Normal Gait, Normal Speech, Strength at 5/5 X4 Ext Psych/Mental Status: Mental Status NL Hospital Course Was the Problem List Reviewed?: Yes Pt feeling better today. He has some diarrhea stools, but no n/v. Some suprapubic abdominal pain, but he had his morning straight cath. He has been ambulating on the floor with no difficulty or significant shortness of breath. He has no other complaints at this time and is ready to go home. Hospital Course: 81 YO male with a hx CAD, HTN, and BPH was admitted on 08/02 for UTI and sepsis. He is known to have frequent UTIs, straight caths himself at least twice a day, and is followed by Dr. Jones due to hx of prostate cancer and TURP procedure. In the ED (08/02/22) CT revealed bilateral hydronephrosis and cystitis, but no calculi. He was started on Cefepime in ED , however due to increased white count and procalcitonin, we covered him for potential ESBL with meropenem and IVF. Once cultures with sensitivities resulted he was changed to ceftriaxone. He was also started on Lasix, potassium supplement, and PT regimen. Pt tolerated the abx and medications well. His white count has significantly improved to 9.6 today. Pt tolerated PT well with limited shortness of breath. He is not requiring any supplemental oxygen at this time. Pt denies CP, fever, chills, N/V, abdominal pain, or any other acute sx. He is ready for his dismissal home, with the help of his daughter. Will dismiss home on Omnicef (300mg BID). Lasix and potassium supplementation have been DC. Advised pt to continue at home medications as prescribed. Recommended he f/u with Dr. Young at the end of this week. Pt is agreeable with plan. SERA AJ Aug 06, 2022 12:20 Labs (last 24 hrs) Laboratory Tests 08/02/22 17:39: Urine Color YELLOW, Urine Clarity CLOUDY, Urine pH 6.0, Urine Specific [place] 1.015L, Urine Protein 1+H, Urine Glucose (UA) NEGATIVE, Urine Ketones NEGATIVE, Urine Nitrite POSITIVEH, Urine Bilirubin NEGATIVE, Urine Urobilinogen 0.2, Urine Leukocyte Esterase 3+H, Urine RBC (Auto) 3+H, Urine RBC >100H, Urine WBC TNTCH, Urine Crystals NONE, Urine Bacteria MODERATEH, Urine Casts NONE, Urine Mucus NEGATIVE, Urine Culture Indicated CULTURE PENDING 08/02/22 17:40: White Blood Count 12.5H, Red Blood Count 4.22L, Hemoglobin 13.4, Hematocrit 38L, Mean Corpuscular Volume 91, Mean Corpuscular Hemoglobin 32, Mean Corpuscular Hemoglobin Concent 35, Red Cell Distribution Width 12.4, Platelet Count 187, Mean Platelet Volume 9.8, Immature Granulocyte % (Auto) 0, Neutrophils (%) (Auto) 96H, Lymphocytes (%) (Auto) 2L, Monocytes (%) (Auto) 1, Eosinophils (%) (Auto) 0, Basophils (%) (Auto) 0, Neutrophils # (Auto) 12.0H, Lymphocytes # (Auto) 0.3L, Monocytes # (Auto) 0.1, Eosinophils # (Auto) 0.0, Basophils # (Auto) 0.0, Immature Granulocyte # (Auto) 0.1, Neutrophils % (Manual) 88, Lymp hocytes % (Manual) 1, Basophils % (Manual) 1, Band Neutrophils 10, Toxic Granulation 1+, Blood Morphology Comment NORMAL, Prothrombin Time 13.8, INR Comment 1.0, Activated Partial Thromboplast Time 29, Sodium Level 132L, Pot assium Level 3.4L, Chloride Level 101, Carbon Dioxide Level 21, Anion Gap 10, Blood Urea Nitrogen 24H, Creatinine 0.89, Estimat Glomerular Filtration Rate 87, BUN/Creatinine Ratio 27, Glucose Level 103, Lactic Acid Level 1.32, Calcium Level 9.0, Corrected Calcium 8.9, Total Bilirubin 0.6, Aspartate Amino Transf (AST/SGOT) 67H, Alanine Aminotransferase (ALT/SGPT) 53, Alkaline Phosphatase 54, Total Protein 6.7, Albumin 4.1, Amylase Level 103, Procalcitonin 9.67H 08/02/22 18:22: Influenza Type A (RT-PCR) Not Detected, Influenza Type B (RT-PCR) Not Detected, SARS-CoV-2 RNA (RT-PCR) Not Detected 08/02/22 19:13: Lab Scanned Report Referred Lab Report 08/03/22 07:17: White Blood Count 22.6H, Red Blood Count 3.84L, Hemoglobin 12.1L, Hematocrit 35L , Mean Corpuscular Volume 90, Mean Corpuscular Hemoglobin 32, Mean Corpuscular Hemoglobin Concent 35, Red Cell Distribution Width 12.7, Platelet Count 159, Mean Platelet Volume 10.1, Immature Granulocyte % (Auto) 1, Neutrophils (%) (Auto) 92H, Lymphocytes (%) (Auto) 2L, Monocytes (%) (Auto) 4, Eosinophils (%) (Auto) 0, Basophils (%) (Auto) 0, Neutrophils # (Auto) 20.9H, Lymphocytes # (Auto) 0.4L, Monocytes # (Auto) 1.0, Eosinophils # (Auto) 0.0, Basophils # (Auto) 0.1, Immature Granulocyte # (Auto) 0.2H, Neutrophils % (Manual) 82, Lymphocytes % (Manual) 2, Monocytes % (Manual) 0, Eosinophils % (Manual) 0, Basophils % (Manual) 0, Band Neutrophils 16, Blood Morphology Comment NORMAL, Sodium Level 136, Potassium Level 3.6, Chloride Level 105, Carbon Dioxide Level 24, Anion Gap 7, Blood Urea Nitrogen 18, Creatinine 0.87, Estimat Glomerular Filtration Rate 88, BUN/Creatinine Ratio 21, Glucose Level 112H, Calcium Level 8.8, Corrected Calcium 9.3, Total Bilirubin 0.7, Aspartate Amino Transf (AST/SGOT) 78H, Alanine Aminotransferase (ALT/SGPT) 97H, Alkaline Phosphatase 46 , Total Protein 5.6L, Albumin 3.4, Procalcitonin 57.00H 08/04/22 05:51: White Blood Count 16.1H, Red Blood Count 3.77L, Hemoglobin 12.0L, Hematocrit 34L , Mean Corpuscular Volume 91, Mean Corpuscular Hemoglobin 32, Mean Corpuscular Hemoglobin Concent 35, Red Cell Distribution Width 13.1, Platelet Count 135, Mean Platelet Volume 9.9, Immature Granulocyte % (Auto) 1, Neutrophils (%) (Auto) 93H, Lymphocytes (%) (Auto) 2L, Monocytes (%) (Auto) 4, Eosinophils (%) (Auto) 0, Basophils (%) (Auto) 0, Neutrophils # (Auto) 15.0H, Lymphocytes # (Auto) 0.3L, Monocytes # (Auto) 0.6, Eosinophils # (Auto) 0.0, Basophils # (Auto) 0.0, Immature Granulocyte # (Auto) 0.1, Sodium Level 136, Potassium Level 3.6, Chloride Level 105, Carbon Dioxide Level 20L, Anion Gap 11, Blood Urea Nitrogen 14, Creatinine 0.78, Estimat Glomerular Filtration Rate 91, BUN/Creatinine Ratio 18, Glucose Level 101, Calcium Level 8.6, Corrected Calcium 9.3, Total Bilirubin 0.6, Aspartate Amino Transf (AST/SGOT) 38H, Alanine Aminotransferase (ALT/SGPT) 58H, Alkaline Phosphatase 51, Total Protein 5.5L, Albumin 3.1L 08/05/22 06:36: White Blood Count 12.3H, Red Blood Count 3.86L, Hemoglobin 12.1L, Hematocrit 35L , Mean Corpuscular Volume 90, Mean Corpuscular Hemoglobin 31, Mean Corpuscular Hemoglobin Concent 35, Red Cell Distribution Width 12.6, Platelet Count 154, Mean Platelet Volume 10.2, Immature Granulocyte % (Auto) 1, Neutrophils (%) (Auto) 85H, Lymphocytes (%) (Auto) 5L, Monocytes (%) (Auto) 8, Eosinophils (%) (Auto) 0, Basophils (%) (Auto) 0, Neutrophils # (Auto) 10.5H, Lymphocytes # (Auto) 0.6L, Monocytes # (Auto) 1.0, Eosinophils # (Auto) 0.1, Basophils # (Auto) 0.0, Immature Granulocyte # (Auto) 0.2H, Sodium Level 136, Potassium Level 3.5L, Chloride Level 103, Carbon Dioxide Level 22, Anion Gap 11, Blood Urea Nitrogen 11, Creatinine 0.76, Estimat Glomerular Filtration Rate 91, BUN/Creatinine Ratio 14, Glucose Level 101, Calcium Level 8.9, Corrected Calcium 9.5, Total Bilirubin 0.6, Aspartate Amino Transf (AST/SGOT) 28, Alanine Aminotransferase (ALT/SGPT) 46, Alkaline Phosphatase 67, Total Protein 5.9L, Albumin 3.2 08/06/22 05:00: Sodium Level 135, Potassium Level 3.7, Chloride Level 103, Carbon Dioxide Level 22, Anion Gap 10, Blood Urea Nitrogen 17, Creatinine 0.82, Estimat Glomerular Filtration Rate 89, BUN/Creatinine Ratio 21, Glucose Level 97, Calcium Level 8.9, Corrected Calcium 9.4, Total Bilirubin 0.5, Aspartate Amino Transf (AST/SGOT) 29, Alanine Aminotransferase (ALT/SGPT) 43, Alkaline Phosphatase 52, Total Protein 6.3L, Albumin 3.4 08/06/22 05:10: White Blood Count 9.6, Red Blood Count 3.95L, Hemoglobin 12.4L, Hematocrit 36L, Mean Corpuscular Volume 91, Mean Corpuscular Hemoglobin 31, Mean Corpuscular Hemoglobin Concent 34, Red Cell Distribution Width 12.7, Platelet Count 166, Mean Platelet Volume 10.1, Immature Granulocyte % (Auto) 5, Neutrophils (%) (Auto) 72, Lymphocytes (%) (Auto) 10L, Monocytes (%) (Auto) 9, Eosinophils (%) (Auto) 3, Basophils (%) (Auto) 1, Neutrophils # (Auto) 6.9, Lymphocytes # (Auto) 1.0, Monocytes # (Auto) 0.9, Eosinophils # (Auto) 0.3, Basophils # (Auto) 0.1, Immature Granulocyte # (Auto) 0.5H Microbiology 08/02/22 Blood Culture - Preliminary, Resulted No growth 08/02/22 Urine Culture - Final, Complete Escherichia coli Pending Labs Microbiology Date/Time Source Procedure Growth Status 08/02/22 19:02 Peripheral Rt Ac Blood Culture - Preliminary No growth Resulted 08/02/22 17:40 Peripheral Left Forearm Blood Culture Pending Received 08/02/22 17:39 Urine Clean Catch Urine Culture - Final Escherichia coli Complete Laboratory Tests 08/02/22 17:39: Urine Color YELLOW, Urine Clarity CLOUDY, Urine pH 6.0, Urine Specific [place] 1.015, Urine Protein 1+, Urine Glucose (UA) NEGATIVE, Urine Ketones NEGATIVE, Urine Nitrite POSITIVE, Urine Bilirubin NEGATIVE, Urine Urobilinogen 0.2, Urine Leukocyte Esterase 3+, Urine RBC (Auto) 3+, Urine RBC >100, Urine WBC TNTC, Urine Crystals NONE, Urine Bacteria MODERATE, Urine Casts NONE, Urine Mucus NEGATIVE, Urine Culture Indicated CULTURE PENDING 08/02/22 17:40: White Blood Count 12.5, Red Blood Count 4.22, Hemoglobin 13.4, Hematocrit 38, Mean Corpuscular Volume 91, Mean Corpuscular Hemoglobin 32, Mean Corpuscular Hemoglobin Concent 35, Red Cell Distribution Width 12.4, Platelet Count 187, Mean Platelet Volume 9.8, Immature Granulocyte % (Auto) 0, Neutrophils (%) (Auto) 96, Lymphocytes (%) (Auto) 2, Monocytes (%) (Auto) 1, Eosinophils (%) (Auto) 0, Basophils (%) (Auto) 0, Neutrophils # (Auto) 12.0, Lymphocytes # (Auto) 0.3, Monocytes # (Auto) 0.1, Eosinophils # (Auto) 0.0, Basophils # (Auto) 0.0, Immature Granulocyte # (Auto) 0.1, Neutrophils % (Manual) 88, Lymphocytes % (Manual) 1, Basophils % (Manual) 1, Band Neutrophils 10, Toxic Granulation 1+, Blood Morphology Comment NORMAL, Prothrombin Time 13.8, INR Comment 1.0, Activated Partial Thromboplast Time 29, Sodium Level 132, Potassium Level 3.4, Chloride Level 101, Carbon Dioxide Level 21, Anion Gap 10, Blood Urea Nitrogen 24, Creatinine 0.89, Estimat Glomerular Filtration Rate 87, BUN/Creatinine Ratio 27, Glucose Level 103, Lactic Acid Level 1.32, Calcium Level 9.0, Corrected Calcium 8.9, Total Bilirubin 0.6, Aspartate Amino Transf (AST/SGOT) 67, Alanine Aminotransferase (ALT/SGPT) 53, Alkaline Phosphatase 54, Total Protein 6.7, Albumin 4.1, Amylase Level 103, Procalcitonin 9.67 08/02/22 18:22: Influenza Type A (RT-PCR) Not Detected, Influenza Type B (RT-PCR) Not Detected, SARS-CoV-2 RNA (RT-PCR) Not Detected 08/02/22 19:13: Lab Scanned Report Referred Lab Report 08/03/22 07:17: White Blood Count 22.6, Red Blood Count 3.84, Hemoglobin 12.1, Hematocrit 35, Mean Corpuscular Volume 90, Mean Corpuscular Hemoglobin 32, Mean Corpuscular Hemoglobin Concent 35, Red Cell Distribution Width 12.7, Platelet Count 159, Mean Platelet Volume 10.1, Immature Granulocyte % (Auto) 1, Neutrophils (%) (Auto) 92, Lymphocytes (%) (Auto) 2, Monocytes (%) (Auto) 4, Eosinophils (%) (Auto) 0, Basophils (%) (Auto) 0, Neutrophils # (Auto) 20.9, Lymphocytes # (Auto) 0.4, Monocytes # (Auto) 1.0, Eosinophils # (Auto) 0.0, Basophils # (Auto) 0.1, Immature Granulocyte # (Auto) 0.2, Neutrophils % (Manual) 82, Lymphocytes % (Manual) 2, Monocytes % (Manual) 0, Eosinophils % (Manual) 0, Basophils % (Manual) 0, Band Neutrophils 16, Blood Morphology Comment NORMAL, Sodium Level 136, Potassium Level 3.6, Chloride Level 105, Carbon Dioxide Level 24, Anion Gap 7, Blood Urea Nitrogen 18, Creatinine 0.87, Estimat Glomerular Filtration Rate 88, BUN/Creatinine Ratio 21, Glucose Level 112, Calcium Level 8.8, Corrected Calcium 9.3, Total Bilirubin 0.7, Aspartate Amino Transf (AST/SGOT) 78, Alanine Aminotransferase (ALT/SGPT) 97, Alkaline Phosphatase 46, Total Protein 5.6, Albumin 3.4, Procalcitonin 57.00 08/04/22 05:51: White Blood Count 16.1, Red Blood Count 3.77, Hemoglobin 12.0, Hematocrit 34, Mean Corpuscular Volume 91, Mean Corpuscular Hemoglobin 32, Mean Corpuscular Hemoglobin Concent 35, Red Cell Distribution Width 13.1, Platelet Count 135, Mean Platelet Volume 9.9, Immature Granulocyte % (Auto) 1, Neutrophils (%) (Auto) 93, Lymphocytes (%) (Auto) 2, Monocytes (%) (Auto) 4, Eosinophils (%) (Auto) 0, Basophils (%) (Auto) 0, Neutrophils # (Auto) 15.0, Lymphocytes # (Auto) 0.3, Monocytes # (Auto) 0.6, Eosinophils # (Auto) 0.0, Basophils # (Auto) 0.0, Immature Granulocyte # (Auto) 0.1, Sodium Level 136, Potassium Level 3.6, Chloride Level 105, Carbon Dioxide Level 20, Anion Gap 11, Blood Urea Nitrogen 14, Creatinine 0.78, Estimat Glomerular Filtration Rate 91, BUN/Creatinine Ratio 18, Glucose Level 101, Calcium Level 8.6, Corrected Calcium 9.3, Total Bilirubin 0.6, Aspartate Amino Transf (AST/SGOT) 38, Alanine Aminotransferase (ALT/SGPT) 58, Alkaline Phosphatase 51, Total Protein 5.5, Albumin 3.1 08/05/22 06:36: White Blood Count 12.3, Red Blood Count 3.86, Hemoglobin 12.1, Hematocrit 35, Mean Corpuscular Volume 90, Mean Corpuscular Hemoglobin 31, Mean Corpuscular Hemoglobin Concent 35, Red Cell Distribution Width 12.6, Platelet Count 154, Mean Platelet Volume 10.2, Immature Granulocyte % (Auto) 1, Neutrophils (%) (Auto) 85, Lymphocytes (%) (Auto) 5, Monocytes (%) (Auto) 8, Eosinophils (%) (Auto) 0, Basophils (%) (Auto) 0, Neutrophils # (Auto) 10.5, Lymphocytes # (Auto) 0.6, Monocytes # (Auto) 1.0, Eosinophils # (Auto) 0.1, Basophils # (Auto) 0.0, Immature Granulocyte # (Auto) 0.2, Sodium Level 136, Potassium Level 3.5, Chloride Level 103, Carbon Dioxide Level 22, Anion Gap 11, Blood Urea Nitrogen 11, Creatinine 0.76, Estimat Glomerular Filtration Rate 91, BUN/Creatinine Ratio 14, Glucose Level 101, Calcium Level 8.9, Corrected Calcium 9.5, Total Bilirubin 0.6, Aspartate Amino Transf (AST/SGOT) 28, Alanine Aminotransferase (ALT/SGPT) 46, Alkaline Phosphatase 67, Total Protein 5.9, Albumin 3.2 08/06/22 05:00: Sodium Level 135, Potassium Level 3.7, Chloride Level 103, Carbon Dioxide Level 22, Anion Gap 10, Blood Urea Nitrogen 17, Creatinine 0.82, Estimat Glomerular Filtration Rate 89, BUN/Creatinine Ratio 21, Glucose Level 97, Calcium Level 8.9, Corrected Calcium 9.4, Total Bilirubin 0.5, Aspartate Amino Transf (AST/SGOT) 29, Alanine Aminotransferase (ALT/SGPT) 43, Alkaline Phosphatase 52, Total Protein 6.3, Albumin 3.4 08/06/22 05:10: White Blood Count 9.6, Red Blood Count 3.95, Hemoglobin 12.4, Hematocrit 36, Mean Corpuscular Volume 91, Mean Corpuscular Hemoglobin 31, Mean Corpuscular Hemoglobin Concent 34, Red Cell Distribution Width 12.7, Platelet Count 166, Mean Platelet Volume 10.1, Immature Granulocyte % (Auto) 5, Neutrophils (%) (Auto) 72, Lymphocytes (%) (Auto) 10, Monocytes (%) (Auto) 9, Eosinophils (%) (Auto) 3, Basophils (%) (Auto) 1, Neutrophils # (Auto) 6.9, Lymphocytes # (Auto) 1.0, Monocytes # (Auto) 0.9, Eosinophils # (Auto) 0.3, Basophils # (Auto) 0.1, Immature Granulocyte # (Auto) 0.5 Discharge Home Medications: Active Scripts Active Cefdinir 300 Mg Capsule 300 Mg PO BID Reported Vitamin D3 (Cholecalciferol (Vitamin D3)) 50 Mcg (2000 Unit) Capsule 50 Mcg PO HS Tylenol Extra Strength (Acetaminophen) 500 Mg Tablet 500-1,000 Mg PO Q8H PRN Aspirin EC (Aspirin) 81 Mg Tablet.dr 81 Mg PO HS Triamterene-Hctz 37.5-25 mg Tb (Triamterene/Hydrochlorothiazid) 37.5 Mg-25 Mg Tablet 0.5 Ea PO DAILY Clopidogrel (Clopidogrel Bisulfate) 75 Mg Tablet 75 Mg PO HS Rosuvastatin Calcium 5 Mg Tablet 5 Mg PO DAILY Diltiazem 24Hr ER (Diltiazem HCl) 240 Mg Cap.er.24h 240 Mg PO HS Alprazolam 0.5 Mg Tablet 0.5 Mg PO HS Nitroglycerin 0.4 Mg Tab.subl 0.4 Mg PO UD PRN Fexofenadine HCl 180 Mg Tablet 180 Mg PO HS Vitamin C (Ascorbic Acid) 1,000 Mg Tablet 1,000 Mg PO DAILY Folbic Tablet (Cyanocobalamin/FA/Pyridoxine) 1 Each Tablet 1 Each PO DAILY Instructions to patient/family Please see electronic discharge instructions given to patient. RAMON ALTMAN DO Aug 06, 2022 11:41
--- NOTE | 2022-08-06 12:20 | Progress Note ---
SERA AJ 08/06/22 1220: Progress Note Pt feeling better today. He has some diarrhea stools, but no n/v. Some suprapubic abdominal pain, but he had his morning straight cath. He has been ambulating on the floor with no difficulty or significant shortness of breath. He has no other complaints at this time and is ready to go home. Hospital Course: 81 YO male with a hx CAD, HTN, and BPH was admitted on 08/02 for UTI and sepsis. He is known to have frequent UTIs, straight caths himself at least twice a day, and is followed by Dr. Jones due to hx of prostate cancer and TURP procedure. In the ED (08/02/22) CT revealed bilateral hydronephrosis and cystitis, but no calculi. He was started on Cefepime in ED , however due to increased white count and procalcitonin, we covered him for potential ESBL with meropenem and IVF. Once cultures with sensitivities resulted he was changed to ceftriaxone. He was also started on Lasix, potassium supplement, and PT regimen. Pt tolerated the abx and medications well. His white count has significantly improved to 9.6 today. Pt tolerated PT well with limited shortness of breath. He is not requiring any supplemental oxygen at this time. Pt denies CP, fever, chills, N/V, abdominal pain, or any other acute sx. He is ready for his dismissal home, with the help of his daughter. Will dismiss home on Omnicef (300mg BID). Lasix and potassium supplementation have been DC. Advised pt to continue at home medications as prescribed. Recommended he f/u with Dr. Young at the end of this week. Pt is agreeable with plan. OLGA ALTMAN DO 08/06/[id number]: Supervisory-Addendum Brief Verification & Attestation Participated in pt care: history, MDM, physical Personally performed: exam, history, MDM, supervision of care Care discussed with: Medical Student Procedures: n/a Results interpretation: Verified all documentation Verification and Attestation of Medical Student E/M Service A medical student performed and documented this service in my presence. I reviewed and verified all information documented by the medical student and made modifications to such information, when appropriate. I personally performed the physical exam and medical decision making. Olga Altman, Aug 06, 2022,21:32 SERA AJ Aug 06, 2022 12:20 OLGA ALTMAN DO Aug 06, 2022 21:32
[2022-08-06 12:30] VITALS: BP 135/69
== END 2022-08-06 12:59 | disposition home or self-care (01) | DRG 872 ==
LOC: EDUNIT# 17:28 → ER 17:30 → 4TH 19:13
PROVIDERS: ADMIT Family Medicine; ATTEND Internal Medicine
DX: A41.9 Sepsis, unspecified organism (principal); N13.6 Pyonephrosis; I25.10 Atherosclerotic heart disease of native coronary artery without angina pectoris; I10 Essential (primary) hypertension; N40.0 Benign prostatic hyperplasia without lower urinary tract symptoms; B96.20 Unspecified Escherichia coli [E. coli] as the cause of diseases classified elsewhere; Z85.46 Personal history of malignant neoplasm of prostate; Z90.79 Acquired absence of other genital organ(s); N31.9 Neuromuscular dysfunction of bladder, unspecified; Z79.82 Long term (current) use of aspirin; Z79.01 Long term (current) use of anticoagulants; Z79.899 Other long term (current) drug therapy; Z95.5 Presence of coronary angioplasty implant and graft; F41.9 Anxiety disorder, unspecified; Z20.822 Contact with and (suspected) exposure to COVID-19
CPT/HCPCS: 36415; 71045; 72128; 72131; 74176; 80053; 81000; 82150; 83605; 84145; 85007; 85025; 85027; 85610; 85730; 87040; 87077; 87088; 87186; 87636; 90662; 93005; 93041; 94664; 94760

== ENCOUNTER 2023-03-03 08:47 | Outpatient (RCR) | payer MEDICARE, BC ==
[~2023-03-03 08:47] MED LIST changes: +ACET-2267 PO; +ALPR0.5T7 PO; +ASPI-1238 PO; +CEFD300C3 PO; +CHOL20003 PO; +DILT240C91 PO; +NF-ALLE180 PO; +NITR0.4T42 PO; +ROSU5TAB13 PO; +SULF-221 PO; +TRIA1TAB3 PO
== END 2023-03-23 | disposition home or self-care (01) ==
LOC: ONC 08:47
PROVIDERS: ATTEND Radiology Radiation Oncology
DX: C61 Malignant neoplasm of prostate (principal)
CPT/HCPCS: 84153; G0463; 36415; 99213

== ENCOUNTER → 2023-05-19 | Outpatient (CLI) | payer MEDICARE, BC ==
--- NOTE | 2023-05-19 17:56 | Diagnostic Imaging Report ---
EXAMINATION: Right hip unilateral 2 or 3 views (w/pelvis when done) HISTORY: Fall 7 days ago. Hip pain COMPARISON: None available. FINDINGS: 2 views of the right hip There is a moderate narrowing of the right hip joint. Adjacent sclerosis and subchondral cystic change noted. Soft tissues unremarkable. IMPRESSION: 1. Degenerative findings with no acute osseous abnormality. Dictated by: Dictated on workstation # [id number]
--- NOTE | 2023-05-19 17:57 | Diagnostic Imaging Report ---
INDICATION: Fall 7 days ago. Right shoulder pain. EXAMINATION: Right shoulder 05/19/2023 FINDINGS: 2 views of the shoulder. There is narrowing and spurring at the acromioclavicular joint with mild narrowing at the glenohumeral joint space. Mild irregularity noted along the inferior aspect of the glenoid age indeterminate. If there is point tenderness, avulsion fracture possible. No other fractures identified. IMPRESSION: 1. Diffuse chronic changes with age indeterminant osseous fragment inferior to the glenoid. Dictated by: Dictated on workstation # [id number]
== END ==
LOC: RAD 16:49
PROVIDERS: ATTEND Nurse Practitioner Family
DX: M16.11 Unilateral primary osteoarthritis, right hip (principal); M25.511 Pain in right shoulder
CPT/HCPCS: 73030; 73502

== ENCOUNTER 2023-09-01 08:52 | Outpatient (RCR) | payer MEDICARE, BC | END 2023-09-22 | disposition home or self-care (01) | LOC: ONC 08:52 | PROVIDERS: ATTEND Radiology Radiation Oncology | DX: C61 Malignant neoplasm of prostate (principal) | CPT/HCPCS: 84153; G0463; 36415; 99213 ==